=== PATIENT | female | born 1990 | race Caucasian/White ===

== ENCOUNTER → 2018-03-24 08:42 | Outpatient (CLI) | payer MEDICAID, SELFPAY ==
[2018-03-24 15:43] LABS: hCG Titer Quant., Serum < 1 mIU/mL (<9 non-preg)
== END ==
PROVIDERS: Visit Provider Obstetrics & Gynecology
DX: N91.1 Secondary amenorrhea (principal)
CPT/HCPCS: 36415; 84702

== ENCOUNTER → 2018-04-01 14:01 | Outpatient (CLI) | payer MEDICAID, SELFPAY ==
[2018-04-01 15:53] LABS: hCG Titer Quant., Serum < 1 mIU/mL (<9 non-preg)
[2018-04-01 15:57] LABS: Hemoglobin A1c 5.2 % (4.2-6.3)
[2018-04-01 16:00] LABS: Follicle Stimulating Hormone 6.3 mIU/mL; Free T3 2.7 pg/mL (2.18-3.98); Luteinizing Hormone 2.5 mIU/mL; Prolactin 5.2 ng/mL; T4 Free Direct 0.92 ng/dL (0.76-1.46); Thyroid Stim Hormone (TSH) 1.06 uIU/mL (0.358-3.74)
== END ==
PROVIDERS: Visit Provider Obstetrics & Gynecology
DX: N91.2 Amenorrhea, unspecified (principal)
CPT/HCPCS: 36415; 83001; 83002; 83036; 84146; 84439; 84443; 84481; 84702

== ENCOUNTER → 2018-04-08 11:10 | Outpatient (CLI) | payer MEDICAID, SELFPAY ==
[2018-04-12 10:00] LABS: HPV Reflexed? NOT INDICATED
== END ==
PROVIDERS: Visit Provider Obstetrics & Gynecology
DX: Z12.4 Encounter for screening for malignant neoplasm of cervix (principal)
CPT/HCPCS: 88175; G0145

== ENCOUNTER 2018-07-20 12:15 | Emergency (ER) | payer MEDICAID, SELFPAY ==
[2018-07-20 12:16] VITALS: BP 153/81; PULSE 100; RESP 17; TEMP 36.9; O2SAT 98; BMI 39.8
--- NOTE | 2018-07-20 13:06 | ED.VIS.GEN ---
History of Present Illness Chief Complaint: Vag Bleeding Informant: Patient Onset: Weeks - 3 Context: Gradual Onset Timing: Continuous Quality: bleeding w/ clots Location: vaginal Current Severity: Severe Maximum Severity: Severe Worsened by: n/a Relieved by: n/a Associated Symptoms: none Narrative: Patient states she had issues with having her menstrual cycle several months ago, so her doctor put her on progesterone and then she started having cycles again. This time, bleeding started with normal timing of her menstrual cycle, but ever since then, she has been continuing to bleed heavily for the last 3 weeks and has not been able to see her SPOTTER yet and was advised to come to the emergency department. She has no systemic symptoms. She has no significant cramping. She is sexually active and does not think she is . No urinary symptoms. Does not have concerned that she has an STD. She states that a couple of times, she has seen what appeared to be dark colored blood clots that have been slimy but denies any other discharge or vaginal pain/itching. Past Medical History - Allergies and Home Meds Allergies/Adverse Reactions: Allergies No Known Allergies Allergy (Verified 07/20/18 12:16) Primary Care Physician: Care Physician,No Primary [Primary Care Provider] - Smoking Status: Never smoker Review of Systems General: Denies: Chills, Fever, Malaise, Sweats Cardiovascular: Denies: Chest pain, Palpitations Respiratory: Denies: Dyspnea, Cough, Dyspnea on exertion Gastrointestinal: Denies: Abdominal pain, Nausea, Vomiting, Diarrhea, Melena, Hematochezia Genitourinary: Reports: - - vaginal bleeding w/ clots. Denies: Dysuria, Hematuria, Frequency Skin: Denies: Rash Neurological: Denies: Headache, Weakness, Numbness Physical Exam Vital Signs/Narrative: Vital Signs Temp Pulse Resp BP Pulse Ox 07/20/18 12:16 98.4 F 100 17 153/81 H 98 Inital Vital Signs reviewed: Yes General: Well nourished, Well developed, - - well-appearing, nad Head: Normocephalic, Atraumatic Eyes: Perrl, EOMI ENT: Moist mucous membranes, No rhinorrhea Neck: Supple, Nontender Cardiovascular: Regular rate, Regular rhythm, No murmurs, Tachycardia - mild Respiratory: No distress, CTA bilaterally, Chest nontender Abdomen: Soft, Nontender, Nondistended, Normal bowel sounds : ext: no lesions. spec: blood & clots in vault, clot in os, no active bleed Back: Nontender, Normal Inspection. Negative for: CVA tenderness Extremities: Nontender, No edema Skin: Normal color, No rash Neurological: Alert, Oriented x3, Cranial nerves II-XII grossly intact, Normal Strength, Normal Sensation Psychological: Normal affect Diagnostic/Tx/Re-eval Laboratory Results 07/20/18 07/20/18 07/20/18 13:10 13:10 13:20 WBC 8.7 RBC 3.52 L Hgb 10.3 L Hct 31.1 L MCV 88.4 MCH 29.3 MCHC 33.1 RDW 12.3 RDW Differential 37.9 Plt Count 361 MPV 8.9 Immature Gran % (Auto) 0.300 Neut % (Auto) 62.6 Lymph % (Auto) 28.1 [place] % (Auto) 6.0 Eos % (Auto) 2.9 Baso % (Auto) 0.1 Absolute Neuts (auto) 5.5 Absolute Lymphs (auto) 2.45 Total Counted Not Reportable Urine Color Red Urine Clarity Turbid Urine pH 6.5 Ur Specific [place] 1.015 Urine Protein 500 H Urine Glucose (UA) Normal Urine Ketones 15 H Urine Occult Blood 250 H Urine Nitrite Negative Urine Bilirubin Negative Urine Urobilinogen Normal Ur Leukocyte Esterase Negative Urine RBC > 100 SEEN Urine WBC 0-5 SEEN Ur Squamous Epith Cells 0 SEEN Urine Bacteria 0 SEEN Urine Mucus 0 SEEN Urine Test Negative - Medical Decision Making Patient is clinically and hemodynamically stable, labs show mild anemia but nothing that needs to be dealt with emergently. is negative. Discussed with her repossessor Dr. Zhang, he agrees with discharge and close outpatient follow-up within the next week and he will call in a prescription for her to fill today. Patient is comfortable with that plan. ED Disposition - Plan for ED Patient: Disposition: Home or Assisted Living Chief Complaint: Vag Bleeding Diagnosis: Menorrhagia Instructions: ED Bleed Irregular Vaginal Referrals: Alexey Zhang MD [STAFF PHYSICIAN] - 1 Week
--- NOTE | 2018-07-20 13:12 | ED.DCSUM_ITS ---
History of Present Illness Chief Complaint: Vag Bleeding Informant: Patient Onset: Weeks - 3 Context: Gradual Onset Timing: Continuous Quality: bleeding w/ clots Location: vaginal Current Severity: Severe Maximum Severity: Severe Worsened by: n/a Relieved by: n/a Associated Symptoms: none Narrative: Patient states she had issues with having her menstrual cycle several months ago, so her doctor put her on progesterone and then she started having cycles again. This time, bleeding started with normal timing of her menstrual cycle, but ever since then, she has been continuing to bleed heavily for the last 3 weeks and has not been able to see her GENERAL OFFICE ASSOCIATE yet and was advised to come to the emergency department. She has no systemic symptoms. She has no significant cramping. She is sexually active and does not think she is . No urin lexie symptoms. Does not have concerned that she has an STD. She states that a couple of times, she has seen what appeared to be dark colored blood clots that have been slimy but denies any other discharge or vaginal pain/itching. Past Medical History - Allergies and Home Meds Allergies/Adverse Reactions: Allergies No Known Allergies Allergy (Verified 07/20/18 12:16) Primary Care Physician: Care Physician,No Primary [Primary Care Provider] - Smoking Status: Never smoker Review of Systems General: Denies: Chills, Fever, Malaise, Sweats Cardiovascular: Denies: Chest pain, Palpitations Respiratory: Denies: Dyspnea, Cough, Dyspnea on exertion Gastrointestinal: Denies: Abdominal pain, Nausea, Vomiting, Diarrhea, Melena, Hematochezia Genitourinary: Reports: - - vaginal bleeding w/ clots. Denies: Dysuria, Hematuria, Frequency Skin: Denies: Rash Neurological: Denies: Headache, Weakness, Numbness Physical Exam Vital Signs/Narrative: Vital Signs Temp Pulse Resp BP Pulse Ox 07/20/18 12:16 98.4 F 100 17 153/81 H 98 Inital Vital Signs reviewed: Yes General: Well nourished, Well developed, - - well-appearing, nad Head: Normocephalic, Atraumatic Eyes: Perrl, EOMI ENT: Moist mucous membranes, No rhinorrhea Neck: Supple, Nontender Cardiovascular: Regular rate, Regular rhythm, No murmurs, Tachycardia - mild Respiratory: No distress, CTA bilaterally, Chest nontender Abdomen: Soft, Nontender, Nondistended, Normal bowel sounds : ext: no lesions. spec: blood & clots in vault, clot in os, no active bleed Back: Nontender, Normal Inspection. Negative for: CVA tenderness Extremities: Nontender, No edema Skin: Normal color, No rash Neurological: Alert, Oriented x3, Cranial nerves II-XII grossly intact, Normal Strength, Normal Sensation Psychological: Normal affect Diagnostic/Tx/Re-eval Laboratory Results 07/20/18 07/20/18 07/20/18 13:10 13:10 13:20 WBC 8.7 RBC 3.52 L Hgb 10.3 L Hct 31.1 L MCV 88.4 MCH 29.3 MCHC 33.1 RDW 12.3 RDW Differential 37.9 Plt Count 361 MPV 8.9 Immature Gran % (Auto) 0.300 Neut % (Auto) 62.6 Lymph % (Auto) 28.1 [place] % (Auto) 6.0 Eos % (Auto) 2.9 Baso % (Auto) 0.1 Absolute Neuts (auto) 5.5 Absolute Lymphs (auto) 2.45 Total Counted Not Reportable Urine Color Red Urine Clarity Turbid Urine pH 6.5 Ur Specific [place] 1.015 Urine Protein 500 H Urine Glucose (UA) Normal Urine Ketones 15 H Urine Occult Blood 250 H Urine Nitrite Negative Urine Bilirubin Negative Urine Urobilinogen Normal Ur Leukocyte Esterase Negative Urine RBC > 100 SEEN Urine WBC 0-5 SEEN Ur Squamous Epith Cells 0 SEEN Urine Bacteria 0 SEEN Urine Mucus 0 SEEN Urine Test Negative - Medical Decision Making Patient is clinically and hemodynamically stable, labs show mild anemia but nothing that needs to be dealt with emergently. is negative. Discussed with her fine grade operator Dr. Zhang, he agrees with discharge and close outpatient follow-up within the next week and he will call in a prescription for her to fill today. Patient is comfortable with that plan. ED Disposition - Plan for ED Patient: Disposition: Home or Assisted Living Chief Complaint: Vag Bleeding Diagnosis: Menorrhagia Instructions: ED Bleed Irregular Vaginal Referrals: Alexey Zhang MD [STAFF PHYSICIAN] - 1 Week
[2018-07-20 13:15] VITALS: BP 121/86; BP 126/88; BP 128/80; PULSE 74; PULSE 92; PULSE 97
[2018-07-20 13:16] LABS: Bacteria 0 SEEN /hpf (None Seen); Mucous, Urine 0 SEEN /hpf (<or=2+); Squamous Epithelial Cells - UA 0 SEEN /hpf (5-10)
[2018-07-20 13:24] LABS: Color, Urine Red (Yellow); Glucose, Dipstick Normal (Normal); Ketone-Dipstick 15 mg/dl (Negative); Leukocyte Esterase-Dipstick Negative /ul (Negative); Nitrite-Dipstick Negative (Negative); Occult Blood-Urine 250 /ul (Negative); Protein-Dipstick 500 mg/dl (Negative); Specific Gravity, Urine 1.015 (1.002-1.030); Urine Bilirubin Dipstick Negative (Negative); Urine Clarity Turbid (Clear); Urine Urobilinogen Normal (Normal); Urine pH 6.5 (5.0 - 8.0)
[2018-07-20 13:30] LABS: Absolute Lymphocyte Count 2.45 X10^3/ul (0.83-4.51); Absolute Neutrophil Count 5.5 X10^3/uL (2.0-7.7); Basophil# 0.01 X10^3/uL; Basophil% 0.1 % (0-1); Eosinophil# 0.25 X10^3/uL; Eosinophils% 2.9 % (0-5); Hematocrit 31.1 % (37-47); Hemoglobin 10.3 g/dl (12.0-15.0); Lymphocyte # 2.45 X10^3/ul (4.0); Lymphocyte % 28.1 % (19-41); Mean Corp Hgb Conc 33.1 g/gl (32-36); Mean Corpuscular Hgb 29.3 pg (27.0-32.0); Mean Corpuscular Volume 88.4 fL (81-99); Mean Platelet Vol. 8.9 fl (6.2-12.0); Monocyte# 0.52 X10^3/uL; Neutrophil # 5.46 X10^3/uL (2.7-7.7); Neutrophil % 62.6 % (47-70); Platelet Count 361 K/mm3 (150-450); RBC Distribution Width CV 12.3 % (11.6-14.6); RBC Distribution Width SD 37.9 fl (35.1-43.9); Red Blood Count 3.52 M/mm3 (4.2-5.4); White Blood Count 8.7 K/mm3 (4.4-11.0)
[2018-07-20 13:31] LABS: Red Blood Cells-Urine > 100 SEEN /hpf (0-5); White Blood Cells 0-5 SEEN /hpf (0-5)
[2018-07-20 13:32] LABS: Internal QC Validated? YES +Cl - CLEAR BKGD; Pregnancy, Urine Negative Negative
[2018-07-20 13:34] LABS: POSITIVE COUNT NO; POSITIVE DIFFERENTIAL NO; POSITIVE MORPHOLOGY NO
--- NOTE | 2018-07-20 14:46 | ED.RN ---
DISCHARGE INSTRUCTIONS GIVEN TO AND REVIEWED WITH PATIENT, PATIENT DENIES QUESTIONS OR CONCERNS AND VOICE UNDERSTANDING OF DISCHARGE INSTRUCTIONS. PT AMBULATES OUT OF ROOM WITHOUT DIFFICULTY.
--- OUTSIDE RECORDS SUMMARY | 2018-09-14 22:22 | XMS RPT_ITS ---
:1990 Author Organization OHIP Care Team Providers Name Role Phone Alexey Zhang Attending Unavailable Alexey Zhang Attending Unavailable Primay Care Physicia, No Primary Care Unavailable Alexey Zhang Attending Unavailable Primay Care Physicia, No Primary Care Unavailable Primay Care Physicia, No Primary Care Unavailable KORY HO Attending Unavailable Dee Pederson Admitting Unavailable Dee Pederson Attending Unavailable Primay Care Physicia, No Primary Care Unavailable SANDEEP FERNANDEZ Attending Unavailable PROBLEMS PROBLEMS DATE TYPE CONDITION / CODE ATTENDING STATUS SOURCE 07/25/2018 Unknown N92.0 - Excessive Dacia, Dee Active [facility] and frequent Community menstruation with Hospital regular cycle / Repository N92.0(ICD-10) 07/25/2018 Unknown N92.1 - Excessive Benekos, Dee Active [place] and frequent Community menstruation with Hospital irregular cycle / Repository N92.1(ICD-10) 07/25/2018 Unknown Z68.41 - Body mass Dacia, Dee Active [facility] index (BMI) Community 40.0-44.9, adult / Hospital Z68.41(ICD-10) Repository 07/22/2018 Active Excessive and SANDEEP FERNANDEZ Active [facility] frequent [facility] Other [place] menstruation with Repository irregular cycle / N92.1(ICD-10) 07/22/2018 Active Anemia, ROBBIN FERNANDEZK Active [facility] unspecified / VANDANA Other [place] D64.9(ICD-10) Repository 08/01/2018 Unknown N93.9 - Abnormal VICKORY SALEH Active [facility] uterine and Community vaginal bleeding, Hospital unspecified / Repository N93.9(ICD-10) 04/08/2018 Unknown Z12.4 - Encounter Alexey Zhang Active [facility] for screening for Community malignant neoplasm [facility] / Repository Z12.4(ICD-10) 04/01/2018 Unknown N91.2 - SealAlexey dykes Active [facility] Amenorrhea, Community unspecified / Hospital N91.2(ICD-10) Repository 03/25/2018 Unknown N91.1 - Secondary SealAlexey dykes Active [facility] amenorrhea / Community N91.1(ICD-10) Hospital Repository PROCEDURES PROCEDURES No Procedure Records FoundRESULTS RESULTS DISCHARGE INSTRUCTION Observed: 07/23/2018 Status: F Source: [place] 1:42 PM [facility] REPOSITORY [facility] Medical Records Department [address] [place] [address] Instructions for Home/Discharge Instructions 07/23/18 1338 MR#: [id number] Acct: [id number] Name: RENUKA LAKE Rep #: [id number] : 1990 28 From: Dee Pederson MD PCP: Care Physician, No Primary Status: ADM JV You will use the following diet at home:: No restrictions Discharge Activity: May Shower, May Take a Tub Bath May resume sexual activity in: 1 week Call your doctor if you observe: Fever of 101 or Higher, Using more than one pad per hour, Shortness of breath Allergies/Adverse Reactions: Allergies No Known Allergies Allergy (Verified 07/22/18 20:27) Medications to take at Discharge Acetaminophen [Tylenol] 500 - 1,000 mg PO Q6H PRN PRN tablet 07/23/18 Ferrous Gluconate 324 mg PO BIDCM tablet 07/23/18 Naproxen [Naprosyn] 250 - 500 mg PO Q8H PRN PRN tablet 07/23/18 Primary Care Physician: Care Physician,No Primary [Primary Care Provider] - Test Results: Test results from this visit will be discussed in further detail at your follow-up appointment, if applicable. Please Follow Up With: Alexey Zhang MD - [phone] When: as scheduled on 07/26/18 Proposed Discharge Date: 07/23/18 07/23/18 1342 <Electronically signed by Dee Pederson MD> Date Dee Pederson MD CC: No Primary Care Physician DISCHARGE SUMMARY Observed: 07/23/2018 Status: F Source: [place] 9:42 AM [facility] REPOSITORY [facility] Medical Records Department [address] [place] [address] [place] [address] Discharge Summary 07/23/18 0936 MR#: [id number] Acct: [id number] Name: RENUKA LAKE Rep #: [id number] : 1990 28 From: Dee Pederson MD PCP: Care Physician, No Primary Status: ADM JV Y Location: [address] Discharge Date and Diagnosis Date of Admission: 07/22/18 Date of Discharge: 07/23/18 - Primary Discharge Diagnosis Menorrhagia Irregular and excessive vaginal bleeding Acute blood loss anemia Hospital Course and Treatment Imaging Results: 07/23/18 08:00 Transvaginal Non- [US] Urgent Operations: - Summary of Care Provided: The patient is a 28 year old F Presents from [place] ED with CC of heavy vaginal bleeding Bleeding since 07/04/18 and now CD 9. Had been given Provera in past to regulate cycles, amenorrhea. Most recently given Sprintec two po daily and ferrous gluconate 324 mg po bid to control and treat bleeding. nausea on this regimen and continued bleeding. Hgb at [facility] 10 g/dl then to [place] tow days later Hgb at 8 g/dl. Advised hospital observation with serial hgb and exams , possible blood transfusion. DepoProvera 150 mg IM x one given on 07/22/18. Last pm Hgb here 7.7 g/dl and this am Hgb 7.1 g/dl. Pt is clinically stable, no longer bleeding heavily or passing clots. Pelvic sono done, results pending. Dischg home today To f/u with Dr. Zhang as scheduled on 07/26/18 in office for continued plan of care. - Physical Exam Vital Signs Temp Pulse Resp BP Pulse Ox 98.4 F 86 16 103/59 L 99 07/23/18 08:36 07/23/18 08:36 07/23/18 08:36 07/23/18 08:36 07/23/18 08:36 Oxygen Delivery Method Room Air Weight: 109.854 kg Body Mass Index (BMI) 40.3 Intake and Output for Last 24 Hours Intake Total 120 / 120 250 / 250 Output Total 200 / 200 100 / 100 Balance -80 / -80 150 / 150 Laboratory Tests Past 24 Hrs WBC 13.9 H 8.3 RBC 2.71 L 2.48 L Hgb 7.7 L 7.1 L Hct 23.6 L 21.8 L MCV 87.1 87.9 MCH 28.4 28.6 MCHC 32.6 32.6 WBC Discharge Diet: No Restrictions Discharge Activity: May Shower, May Take a Tub Bath Call your doctor if you observe: Fever of 101 or Higher, Using more than one pad per hour, Shortness of breath Home Medications: Medications to take at Discharge NK 07/20/18 Primary Care Physician: Care Physician,No Primary [Primary Care Provider] - Please Follow Up With: Alexey Zhang MD - [phone] When: as scheduled on 07/26/18 Disposition: Home Patient Condition:: Stable Medical Necessity - Tobacco Use Smoking Status: Never smoker Tobacco Use: Non-smoker Meaningful Use Info Meaningful Use Diagnoses (Choose all that apply): None applicable 07/23/18 0942 <Electronically signed by Dee Pederson MD> Date Dee Pederson MD Cosigner Signature (if applicable): Date CC: No Primary Care Physician; Dee Pederson MD Signed CBC-COMPLETE BLOOD CNT Collected: 07/23/2018 Status: F Source: [place] NO DIFF 7:03 AM [facility] REPOSITORY TYPE CODE TESTS RESULT OUT OF RANGE REFERENCE UNITS LAB L100.1000 4.4-11.0 K/mm3 Normal WBC 8.3 LAB L100.1200 4.2-5.4 M/mm3 Low RBC 2.48 LAB L100.1300 12.0-15.0 g/dl Low HGB 7.1 LAB L100.1400 37-47 % Low HCT 21.8 LAB L100.1500 81-99 fL Normal MCV 87.9 LAB L100.1600 27.0-32.0 pg Normal MCH 28.6 LAB L100.1700 32-36 g/gl Normal MCHC 32.6 LAB L100.1810 11.6-14.6 % Normal RDW CV 12.9 LAB L100.1820 35.1-43.9 fl Normal RDW SD 41.1 LAB L100.1900 150-450 K/mm3 Normal PLT 287 LAB L100.2000 6.2-12.0 fl Normal MPV 8.8 Performed By: #### L100.0500, L500.2500 #### [facility] [address] [place], [place], [address] BASIC METABOLIC Collected: 07/23/2018 Status: F Source: [place] PROFILE (BMP) 7:03 AM [facility] REPOSITORY TYPE CODE TESTS RESULT OUT OF RANGE REFERENCE UNITS LAB L501.0100 74-106 mg/dL High GLU 107 Result Comment: Fasting Glucose result from 100 to 125 mg/dL suggests IMPAIRED HOMEOSTASIS per A.D.A. criteria. Please note revised GLUCOSE reference range effective 2017. LAB L501.1000 7-18 mg/dL Normal BUN 11 LAB L501.1100 0.55-1.02 mg/dL Normal CREAT,SERUM 0.68 Result Comment: The validity of the calculated GFR AND GFRAA in patients over 70 years has not been determined. Clinical correlation is essential. LAB L501.1110 >60 mL/min Normal EST GFR 109 Result Comment: Non- GFR Calc LAB L501.1115 >60 mL/min Normal EST GFR - AA 131 Result Comment: GFR Calc LAB L501.1255 ml/min Normal Estimated CRCL 109.84 LAB L501.1300 10-20 RATIO BUN/CRE Normal 16.2 LAB L501.2200 8.5-10 mg/dL Low .1 CA 8.1 LAB L501.5300 136-14 mmol/L 5 NA Normal 142 LAB L501.5600 3.5-5. mmol/L Low 1 K 3.4 LAB L501.5900 98-107 mmol/L CL Normal 107 LAB L501.6100 21.0-3 mmol/L 2.0 CO2 Normal 28.0 LAB L501.6200 5-15 GAP Normal 7 Performed By: #### L100.0500, L500.2500 #### [facility] [address] [facility] [place], [address] TRANSVAGINAL Observed: 07/23/2018 Status: F Source: [place] NON- 12:01 AM [facility] REPOSITORY [facility] Imaging Services [address] [place] [address] Transvaginal Non- MR#: [id number] Acct: [id number] Name: RENUKA LAKE Rep #: [id number] : 1990 F 28 From: Tonny Canas MD PCP: Care Physician, No Primary Status: ADM JV Study: Transvaginal Non- Date of Exam: 07/23/18 Exam# [id number] Ordering Dr: Dee Pederson MD STUDY: ULTRASOUND OF THE FEMALE PELVIS - COMPLETE REASON FOR EXAM: Female, 28 years old. Menorrhagia. History of section. LMP: July 04, 2018. TECHNIQUE: Transvaginal primarily. A few additional transabdominal images were obtained for additional imaging of the left ovary. TECHNICAL QUALITY: Adequate. COMPARISON: None. FINDINGS: The uterus is anteverted and is in a midline position. The uterus measures 9.1 x 6.8 x 5.2 cm. There are subcentimeter Nabothian cysts of the cervix. The endometrium measures 23 mm in thickness, and is hyperechoic. There is no demonstrated endometrial mass. There is no demonstrated myometrial mass. I.U.D. - The patient does not have an I.U.D. The right ovary is visualized only with endovaginal imaging. The right ovary measures 6.0 x 5.6 x 3.7 cm. This includes a 4.6 x 3.8 x 3.2 cm simple appearing cyst. There is no visualized right adnexal mass or complex lesion. There is normal arterial and normal venous vascularity. The left ovary is visualized only on transabdominal imaging. The left ovary measures 3.5 x 2.3 x 2.0 cm. There is a simple appearing 1.8 x 1.6 x 1.2 cm cyst. There is no visualized left adnexal mass or complex lesion. There is normal arterial and normal venous vascularity. There is minimal fluid in the cul-de-sac. Polycystic ovary disease: No. US/Transvaginal Non- IMPRESSION: 1. Normal size, anteverted uterus with probable hyperplastic endometrial thickening. Blood clot in the endometrial cavity might also have this appearance. Neoplasm unlikely, but not excluded. 2. 4.6 cm simple appearing right ovarian cyst, and 1.8 cm probable follicular cyst in the left ovary. 3. Small volume free fluid in the cul-de-sac. Electronically Signed: Loy Canas MD at 10:43 EST , Service support , CC: No Primary Care Physician; Dee Pederson MD Autocad: Signed TYPE AND SCREEN Collected: 07/22/2018 Status: F Source: [place] 9:45 PM [facility] REPOSITORY Order Comment: Reason for Type AND Screen/Red Cells: HEMORRHAGE, VAGINAL TYPE CODE TESTS RESULT OUT OF RANGE REFERENCE UNITS LAB B10.0800 O Normal BLOOD TYPE GEL POSITIVE LAB B100.4000 Normal Antibody NEGATIVE Screen Performed By: #### B101.7450 #### [facility] [address] [facility] [place], [address] HISTORY AND PHYSICAL Observed: 07/22/2018 Status: F Source: [place] EXAM 8:58 PM [facility] REPOSITORY [facility] Medical Records Department [address] [place] [address] History and Physical 07/22/182001 MR#: [id number] Acct: [id number] Name: RENUKA LAKE Rep #: [id number] : 1990 28 From: Dee Pederson MD PCP: Care Physician, No Primary Status: ADM JV Y Location: [place] [address] History and Physical Date of Admission: 07/22/18 HISTORY OF PRESENT ILLNESS: On 07/22/2018, Renuka Sagastume, a 28 year old female 2 0 0 0 2, presented for: -- Admitting to [facility] from [place] ED. Pt with heavy bleeding, starting in last week. She has been on Provera in past due to amenorrhea. Had normal prolactin, TSH, Free T3. Hgb A1C , FSH and LH all in March 2018. Has not had a pelvic sono done at [facility] or in ofc (outside of ). Went to [place] ED today for evaluation after calling in to ofc to state she feels like and is SOB and bleeding heavily. [facility] does not have PRODUCTION SUPPORT DEVELOPER service, no DepoProvera available. No pelvic sono can be done. Recommended she come to [facility] for direct admit, overnight observation, serial CBC, possible blood transfusion and pelvic sono. Plan of care discussed with [place] ED on service johnie and Renuka agreed. EB -- vaginal bleeding which began 06/03/18. Renuka claims it started with period and has been present continuously. It is located in the vagina. It is aggravated by nothing and relieved by Nothing . OCP is not working for her as bleeding continues. An associated sign and symptom is h/o amenorrhea, irreg periods. Induced period with Provera in past.. Additional comment: Hgb 10 at [facility] ED w d ago. , now 8 gm/dl at [place] ED tonight. States she is feeling a little better than when she went to ED at [place]. Relates when she called in she was at home alone with 3 yr old also and feeling very overwhelmed with bleeding. No longer SOB. States period was irregular in past, but has been about q month since January 2018. ALLERGIES: No Known Allergies MEDICATIONS HISTORY: Current medications prescribed by our practice are: 1. ferrous gluconate 324 mg (37.5 mg iron) tablet, one tab PO twice daily 2. Sprintec (28) 0.25 mg-35 mcg tablet, two tabs po daily for 10 days 3. Zofran 4 mg tablet, one tab PO every 6 hours as needed for nausea REVIEW OF SYSTEMS: GENERAL - Denies fever, or chills, feels awful and dizzy. SKIN - Denies skin changes EYES - Denies visual changes EARS - Denies difficulty hearing NOSE - Denies nasal congestion or bleeding MOUTH - Denies sore throat or difficulty swallowing NECK - Denies pain or swelling RESPIRATORY - short of breath CARDIOVASCULAR - Denies palpitations or chest pain GASTROINTESTINAL - Denies nausea, vomiting, diarrhea, constipation GENITOURINARY - heavy bleeding. OCP not working. MUSCULOSKELETAL - Denies joint or muscle pain NEUROLOGICAL - Denies localized numbness or weakness PSYCHIATRIC - Denies depression or anxiety ENDOCRINE - Denies heat or cold intolerance, weight loss or gain HEMATO-IMMUNOLOGIC - Denies excessive bleeding with cuts PAST HISTORY: Breast/Ovarian/Colon Cancers - Great Grandmother breastfeed cancer Infections - Chicken pox Illnesses - none Accidents - no injuries of consequence History of Abnormal PAPS - NO Hospitalizations - Childbirth and see surgery SURGICAL HISTORY: 1. 01/18/2015 Dr Alexey Zhang 2. 02/13/2011 [place] LOMELI MENSTRUAL HISTORY: LMP Known?- DefiniteAmount/Duration - excess amount CD 20 now, Regularity - Irregular and missed periods, LMP - 07/02/18, Age Onset Menarche - 13 PAST PREGNANCIES: Total Pregnancies - 2; Full Term Pregnancies - 2; Premature - 0; Abortions, Induced - 0; Abortions, Spontaneous - 0; Ectopics - 0; Multiple Births - 0; Living Children - 2 FAMILY HISTORY (OLD): Maternal Grandmother: pancreatic CA. Maternal Grandfather: Liver cancer. FAMILY HISTORY: MaternalGrandparent - Cancer; MaternalGrandparent - Carcinoma of the pancreas; SOCIAL HISTORY: Alcohol Use - denies drinking Smoking - Never Diet - could use improvement Lifestyle - moderate stress lifestyle and single Exercise - minimal Seat Belt Use - always Employer - [employer] Job Description - dental assistant prosecuting attorney Illicit Drug Use - denies use of street drugs Sexual Activity - ACTIVE ONE PARTNER Residence - Lives with SO/FOB Place of - [place], [place] Hours Worked - 30 hr per week Spouse-Sig Other Name - Susana Lake Spouse-Sig Other Occupation - Hvac R Instructor Spouse-Sig Other Phone No - [phone] Children Name(s) - Hakeem '11, Kristen '15 PHYSICAL EXAMINATION BP: 110/57 Pulse 92 Pulse ox: 99% on 18 CONSTITUTIONAL - NAD, well nourished, and well developed. Slightly pale appearing. [place] with fair complexion. HEENT - Normocephalic, PERRLA, EOMI NECK - no nuchal rigidity EXTREMITIES - No edema or calf tenderness NEUROLOGICAL - Cranial nerves II-XII grossly intact PSYCHIATRIC - A and O to time, place, person, mood and affect ASSESSMENT: 1. Excessive Bleeding In The Premenopausal Period 2. Other Specified Irregular Menstruation PLAN BY DIAGNOSIS: 1. Excessive Bleeding In The Premenopausal Period and Other Specified Irregular Menstruation H/o amenorrhea and induced period with Provera. Now with heavy bleeding in last 7 days. Period started 07/04/18 and bleeding still, CD #9 Hgb 10 in [facility] ED on 07/20/18, dec to 8 g/dl at [facility] ED. No PRODUCTION SUPPORT DEVELOPER service, no sono at [facility]. Recommend pt come to [facility] for overnight observation. Reviewed options for management with Renuka. Not tolerating Sprintec and / or iron. Advised may consider inc dose of OCP (but not likely to tolerate), IV estrogen to slow bleeding, or DepoProvera 150 mg IM x one. Elects DepoProvera 150 mg IM for now. Plan for serial CBC and will type and screen tonight also in case transfusion required. Clinically stable at present, but with continued bleeding. Continue observation. 07/22/182057 <Electronically signed by Dee Pederson MD> Date Dee Pederson MD Cosigner Signature: Date (if applicable) CC: No Primary Care Physician; Dee Pederson MD Signed ED NOTE Observed: 07/22/2018 Status: COMPLETED Source: [place] 7:02 PM [facility] REPOSITORY HNO ID: [id number] Author: Leonela Redman RN Service: Emergency Medicine Author Type: Registered Nurse Type: ED Notes Filed: 07/22/2018 7:02 PM Note Text: Patient informed: the name of medication, why we are giving it, possible side effects, what they may expect to feel, and was offered a chance to ask questions, prior to the administration of Zofran ED NOTE Observed: 07/22/2018 Status: COMPLETED Source: [place] 6:58 PM [facility] REPOSITORY HNO ID: [id number] Author: Leonela Redman RN Service: Emergency Medicine Author Type: Registered Nurse Type: ED Notes Filed: 07/22/2018 7:15 PM Note Text: Patient c/o nausea requesting medication before transfer. Verbal order from for Zofran. ED NOTE Observed: 07/22/2018 Status: COMPLETED Source: [place] 6:11 PM [facility] REPOSITORY [place] ID: [id number] Author: Tanner Perez, RN Service: Emergency Medicine Author Type: Registered Nurse Type: ED Notes Filed: 07/22/2018 6:16 PM Note Text: Contacted [facility] for transport. Spoke with Savita, she was given requested patient information. She states [facility] will take the transport. ETA 1 hour. ED NOTE Observed: 07/22/2018 Status: COMPLETED Source: [place] 6:09 PM [facility] REPOSITORY HNO ID: [id number] Author: Tanner YoungRn) BK Perez Service: Emergency Medicine Author Type: Registered Nurse Type: ED Notes Filed: 07/22/2018 6:15 PM Note Text: Received call from sae Buckmalt house kiln operator at [facility]. Pt has been assigned to room # 215, med/surg. Number for report is . Primary nurse notified. ED NOTE Observed: 07/22/2018 Status: COMPLETED Source: [place] 6:01 PM [facility] REPOSITORY HNO ID: [id number] Author: Tanner YoungRn) BK Perez Service: Emergency Medicine Author Type: Registered Nurse Type: ED Notes Filed: 07/22/2018 6:02 PM Note Text: Spoke with Heber Dust Collector Operator at [place]. Notified that pt will be admitted by Dr. Pederson. He states he will assign bed after receiving a call from admitting physician. ED NOTE Observed: 07/22/2018 Status: COMPLETED Source: [place] 5:58 PM [facility] REPOSITORY HNO ID: [id number] Author: Tanner YoungRn) BK Perez Service: Emergency Medicine Author Type: Registered Nurse Type: ED Notes Filed: 07/22/2018 5:59 PM Note Text: Pt is willing to be admitted to [place]. ED NOTE Observed: 07/22/2018 Status: COMPLETED Source: [place] 5:54 PM [facility] REPOSITORY HNO ID: [id number] Author: Tanner Perez RN Service: Emergency Medicine Author Type: Registered Nurse Type: ED Notes Filed: 07/22/2018 5:58 PM Note Text: Dr. Pederson ([facility]) called back to unit, covering for Dr. Zhang. Dr. Pederson recommends admission to [facility]. She will arrange direct admit. Dr. Fernandez will speak with patient regarding admission ED NOTE Observed: 07/22/2018 Status: COMPLETED Source: [place] 5:43 PM [facility] REPOSITORY HNO ID: [id number] Author: Tanner Perez RN Service: Emergency Medicine Author Type: Registered Nurse Type: ED Notes Filed: 07/22/2018 5:44 PM Note Text: Contacted answering service for GEM Cordero in [place]. Deputy Commonwealth'S Attorney given requested information. States we should receive a call- back shortly ED NOTE Observed: 07/22/2018 Status: COMPLETED Source: [place] 4:45 PM [facility] REPOSITORY HNO ID: [id number] Author: Tanner (Rn) BK Perez Service: Emergency Medicine Author Type: Registered Nurse Type: ED Notes Filed: 07/22/2018 4:46 PM Note Text: Heber malt house kiln operator at [facility] called back and stated he could find no records of this patient at [place]. Primary nurse and physician notified. BASIC PANEL Collected: 07/22/2018 Status: F Source: [facility] 4:34 PM HEALTH SYSTEM REPOSITORY TYPE CODE TESTS RESULT OUT OF REFERENCE UNITS RANGE LAB BERRY PICKER(LOINC) 136-145 mEq/L Low Sodium Blood 135 LAB LK(LOINC) 3.5-5.1 mEq/L Potassium Blood 4.0 LAB LCL(LOINC) 98-107 mEq/L Chloride Blood 101 LAB LCO2(LOINC 21-32 mEq/L ) CO2 Blood 29 LAB LGLU(LOINC 70-99 mg/dL ) Glucose High Blood 120 LAB LBUN(LOINC 7-25 mg/dL ) BUN Blood 15 LAB LCREA(LOIN 0.51-0.95 mg/dL C) Creatinine Blood 0.70 LAB LCA(LOINC) 8.5-10.1 mg/dL Calcium Blood 8.7 LAB LANGP(LOIN 8-20 C) Anion Gap 10 LAB LBNCR(LOIN 10-20 C) High BUN/Creatinine 21 Ratio Performed By: #### LP8 #### [place] [address] MDRD EGFR Collected: 07/22/2018 Status: F Source: [facility] 4:34 PM HEALTH SYSTEM REPOSITORY TYPE CODE TESTS RESULT OUT OF RANGE REFERENCE UNITS LAB LGFRF(LOINC >60mL/min/1.73m ) 2 eGFR >60 Result Comment: If the patient is , multiply the result by 1.210. Performed By: #### LGFR #### [address] [address] HEMOGRAM/MANUAL DIFF Collected: 07/22/2018 Status: F Source: [place] 4:34 PM [facility] REPOSITORY TYPE CODE TESTS RESULT OUT OF REFERENCE UNITS RANGE LAB LWBC(LOINC 4.8-10.8 thou/cmm ) WBC High 12.7 LAB LRBC(LOINC 4.20-5.40 mil/cmm ) RBC Low 2.80 LAB LHGB(LOINC 12.0-16.0 g/dL ) Hgb Low 8.1 LAB LHCT(LOINC 37.0-47.0 % ) Hct Low 24.9 LAB LMCV(LOINC 81.0-99.0 fl ) MCV 88.9 LAB LMCH(LOINC 27.0-31.0 pg ) MCH 28.9 LAB LMCHC(LOIN 32.0-36.0 % C) MCHC 32.5 LAB LRDW(LOINC 11.5-15.9 % ) RDW 12.2 LAB LPLT(LOINC 150-400 thou/cmm ) Platelet 364 LAB LMPV(LOINC 7.1-10.5 fl ) MPV 8.8 LAB LDTYP(LOIN C) Diff Type Manual Diff LAB LSEGT(LOIN % C) Seg Neutrophil 91.0 LAB LLYMP(LOIN % C) Lymphocyte 7.0 LAB LMNO(LOINC % ) Monocyte 2.0 LAB JENNIFER(LOINC % ) Eosinophil 0.0 LAB LBASO(LOIN % C) Basophil 0.2 LAB LSEGN(LOIN 3.00-5.67 thou/cmm C) Abs. Neut (ANC) High 11.53 LAB LLYMN(LOIN 1.50-3.65 thou/cmm C) Abs. Lymph Low 0.89 LAB LMONN(LOIN 0.20-1.00 thou/cmm C) Abs. Hodgeman 0.25 LAB LEOSN(LOIN 0.00-0.41 thou/cmm C) Abs. Eosin 0.00 LAB LBASN(LOIN 0.00-0.08 thou/cmm C) Abs. Baso 0.03 LAB LPLES(LOIN C) Platelet Estimate Normal LAB LANIS(LOIN C) Anisocytosis Slight LAB LPOLY(LOIN C) Polychromasia Few LAB LSTOM(LOIN C) Stomatocytosis Slight Performed By: #### LMCBD #### [facility] [address] [place], [place] [address] ED NOTE Observed: 07/22/2018 Status: COMPLETED Source: [place] 4:30 PM [facility] REPOSITORY HNO ID: [id number] Author: Leonela (Rn) Юлия RN Service: Emergency Medicine Author Type: Registered Nurse Type: ED Notes Filed: 07/22/2018 4:31 PM Note Text: [facility] and lab results from patients last visit. Record released signed by patient and faxed to [facility]. URINE HCG, QUAL. Collected: 07/22/2018 Status: F Source: [facility] 4:30 PM HEALTH SYSTEM REPOSITORY TYPE CODE TESTS RESULT OUT OF REFERENCE UNITS RANGE LAB LUHCG(LOINC Negative ) HCG, Negative Qual. Urine Performed By: #### LHCG2 #### [facility] [address] [id number] URINALYSIS ROUTINE Collected: 07/22/2018 Status: F Source: [facility] 4:30 PM HEALTH SYSTEM REPOSITORY TYPE CODE TESTS RESULT OUT OF RANGE REFERENCE UNITS LAB LCOLR(LOIN C) Urine Color YELLOW LAB LAPPU(LOIN C) Urine Appearance 2+ (SLT CLOUDY) LAB LGLUR(LOIN Negative C) Glucose Urine NEGATIVE LAB LKETO(LOIN Negative C) Abnormal Ketone Urine 1+ LAB LHGBU(LOIN Negative C) Abnormal Hemoglobin,Urin 2+ e LAB LPRTU(LOIN Negative C) Protein Urine NEGATIVE LAB LNITR(LOIN Negative C) Nitrites Urine NEGATIVE LAB LBILU(LOIN Negative C) Bilirubin Urine NEGATIVE LAB LSPG(LOINC 1.005-1.030 ) Specific 1.015 [place], Ur LAB LPHUR(LOIN 5.0-8.0 C) High pH,Urine 8.5 LAB LUROB(LOIN 0.0-1.0 EU/dL C) High Urobilinogen,Ur 2.0 LAB LLEUK(LOIN Negative C) Abnormal Leukocytes TRACE Esterase LAB LWBCU(LOIN 0-5 /hpf C) WBC, Urine 0-2 LAB LRBCU(LOIN 0-3 /hpf C) Abnormal RBC,Urine 21-35 LAB LEPIT(LOIN 0-5 /hpf C) Ep Cells Urine 0-2 LAB LBACT(LOIN None C) Abnormal Bacteria Urine FEW LAB LMUCU(LOIN None C) Mucus Threads MODERATE Performed By: #### AMAN #### [facility] [address] [id number] ED PROV NOTE Observed: 07/22/2018 Status: COMPLETED Source: [place] 4:21 PM [facility] REPOSITORY HNO ID: [id number] Author: Sandeep Fernandez MD Service: Emergency Medicine Author Type: Physician Type: ED Provider Notes Filed: 07/22/2018 5:59 PM Note Text: ED Provider Note Patient Name: Renuka Sagastume SERVICE DATE: 07/22/18 History Patient presents with: Vaginal Bleeding 28-year-old female, complains of vaginal bleeding ?4 weeks. Seen in the ED just several days ago at [facility]. Found to have low hemoglobin, started on iron. Also started on control pills for which she is taking double dose per her BELL VALET recommendations. She has not been able to see her BELL VALET since this bleeding began. Complains of mild lightheadedness, dizziness, nausea times. Cannot describe how heavy the bleeding is, but states she soaking through pads fairly frequently, and having use towels at night to prevent excessive leakage of blood. Denies history of prior abnormal vaginal bleeding prior to this episode. Last menstrual period was in mid May. She is Ab1. Denies chance of with negative test just several days ago. No chest pain. No shortness of breath. No cough, sputum, hemoptysis. No easy bruising or bleeding otherwise. On no anticoagulants. No past medical history on file. No past surgical history on file. No family history on file. Social History Social History Main Topics - Smoking status: Never Smoker - Smokeless tobacco: Never Used - Alcohol use No - Drug use: No - Sexual activity: Yes ALLERGIES No Known Allergies Review of Systems Constitutional: Negative. Negative for diaphoresis and fever. HENT: Negative. Negative for dental problem, ear pain, rhinorrhea and sore throat. Eyes: Negative. Negative for pain and discharge. Respiratory: Negative. Negative for cough, chest tightness and shortness of breath. Cardiovascular: Negative. Negative for chest pain, palpitations and leg swelling. Gastrointestinal: Negative. Negative for abdominal pain, diarrhea, nausea and vomiting. Endocrine: Negative for polyphagia and polyuria. Genitourinary: Positive for menstrual problem, pelvic pain and vaginal bleeding. Negative for difficulty urinating, dysuria, frequency and urgency. Minimal cramping, but heavy vaginal bleeding. Musculoskeletal: Negative. Negative for back pain, gait problem and neck pain. Skin: Negative. Negative for rash and wound. Allergic/Immunologic: Negative for immunocompromised state. Neurological: Negative. Negative for dizziness, seizures, weakness and headaches. Hematological: Does not bruise/bleed easily. Psychiatric/Behavioral: Negative. Negative for agitation and confusion. All other systems reviewed and are negative. Physical Exam BP 129/67 Pulse 98 Temp (Src) 97.1 (Temporal Artery) Resp 18 Ht 5' 5 (1.65m) Wt 230 lb (104.3kg) SpO2 100% BMI 38.27 kg/(m2). Physical Exam Constitutional: She is oriented to person, place, and time. She appears well-developed and well-nourished. No distress. HENT: Head: Normocephalic and atraumatic. Mouth/Throat: No oropharyngeal exudate. Eyes: Pupils are equal, round, and reactive to light. EOM are normal. Right eye exhibits no discharge. Left eye exhibits no discharge. Neck: Normal range of motion. Neck supple. No tracheal deviation present. Cardiovascular: Normal rate, regular rhythm, normal heart sounds and intact distal pulses. No murmur heard. Pulmonary/Chest: No stridor. No respiratory distress. She has no wheezes. She has no rales. Abdominal: Soft. Bowel sounds are normal. She exhibits no distension and no mass. There is no tenderness. There is no rebound and no guarding. Musculoskeletal: Normal range of motion. She exhibits no edema or deformity. Neurological: She is alert and oriented to person, place, and time. She exhibits normal muscle tone. Coordination normal. CN II-VII intact, swallowing intact Skin: Skin is warm and dry. No rash noted. Psychiatric: She has a normal mood and affect. Judgment normal. Nursing note and vitals reviewed. Diagnostic Testing ED Labs Ordered and Reviewed BASIC METABOLIC PANEL (AK,AV,EU,FV,HL,GABINO,MM,SP) - Abnormal; Notable for the following: Result Value Ref Range Sodium 135 (*) 136 - 145 mEq/L Glucose 120 (*) 70 - 99 mg/dL BUN/CREATININE RATIO 21 (*) 10 - 20 All other components within normal limits CBC + AUTO DIFF (AK,AV,EU,FV,HL,GABINO,MM,SP) - Abnormal; Notable for the following: WBC 12.7 (*) 4.8 - 10.8 thou/cmm RBC 2.80 (*) 4.20 - 5.40 mil/cmm HGB 8.1 (*) 12.0 - 16.0 g/dL Hematocrit 24.9 (*) 37.0 - 47.0 % Abs. Neut(Anc) 11.53 (*) 3.00 - 5.67 thou/cmm Abs. Lymph 0.89 (*) 1.50 - 3.65 thou/cmm All other components within normal limits URINALYSIS WITH MICROSCOPIC (EU,FV,HL,GABINO,MM,SP) - Abnormal; Notable for the following: Ketones, Urine 1+ (*) Negative Hemoglobin, Urine 2+ (*) Negative pH, Urine 8.5 (*) 5.0 - 8.0 Urobilinogen, Urine 2.0 (*) 0.0 - 1.0 EU/dL Leukocytes Esterase TRACE (*) Negative RBC, Urine 21-35 (*) 0 - 3 /hpf Bacteria Urine (Manual) FEW (*) None All other components within normal limits HCG QUALITATIVE URINE (AK,AV,EU,FV,HL,GABINO,MM,SP) MDRD GFR Procedures ED Course / Clinical Impression Clinical Impressions as of Jul 22 1759 Menometrorrhagia Anemia, unspecified type MDM / Disposition / Plan Patient presents with continued heavy vaginal bleeding. Started OCP several days ago due to the same thing. Sprintec medication, 2 pills a day per her BELL VALET. Pelvic exam done with salicylic acid blender showed continued mild to moderate vaginal bleeding of dark blood. One or 2 small clots in the vaginal vault. Uterus not tender or overly enlarged. No adnexal masses appreciated. test negative. Hemoglobin 8.1 which is down to just over 2 g from 07/20/2018 when it was 10.3. Chemistries unremarkable. Case will be discussed with Dr. Quach or on-call physician to discuss further options at this point. Case d/w Dr Pederson: Patient will be transferred to [facility] for admission per the discussion. Repeat hemoglobins, possible ultrasounding, and discussion of management of the Metro nausea. Patient in concurrence with plan and has no questions or concerns. The patient was TRANSFERRED to: [facility] Condition at time of disposition: stable SIGNATURE: MD Sandeep Light MD 07/22/18 1759 ED NOTE Observed: 07/22/2018 Status: COMPLETED Source: [place] 4:04 PM [facility] [place] REPOSITORY HNO ID: [id number] Author: Leonela (Rn) BK Redman Service: Emergency Medicine Author Type: Registered Nurse Type: ED Notes Filed: 07/22/2018 4:06 PM Note Text: Patient states she has been having vaginal bleeding and cramping x4 weeks - has seen her OBGYN for this problem. Patient states last 12 hours bleeding has been worse - OBGYN told patient to come to ED. Patient states hemoglobin checked on wednesday and was low. Patient alert and oriented ambulates to room 7 without difficulty. Patient c/o of feeling weak today. EMERGENCY DEPARTMENT Observed: 07/20/2018 Status: F Source: [place] SUMMARY 2:22 PM [facility] REPOSITORY [facility] Medical Records Department [address] [place] [address] Emergency Department Summary 07/20/18 1306 MR#: [id number] Acct: [id number] Name: RENUKA LAKE Rep #: [id number] : 1990 28 From: Koyr Ho MD PCP: Care Physician, No Primary Status: REG ER History of Present Illness Chief Complaint: Vag Bleeding Informant: Patient Onset: Weeks - 3 Context: Gradual Onset Timing: Continuous Quality: bleeding w/ clots Location: vaginal Current Severity: Severe Maximum Severity: Severe Worsened by: n/a Relieved by: n/a Associated Symptoms: none Narrative: Patient states she had issues with having her menstrual cycle several months ago, so her doctor put her on progesterone and then she started having cycles again. This time, bleeding started with normal timing of her menstrual cycle, but ever since then, she has been continuing to bleed heavily for the last 3 weeks and has not been able to see her PRODUCTION SUPPORT DEVELOPER yet and was advised to come to the emergency department. She has no systemic symptoms. She has no significant cramping. She is sexually active and does not think she is . No urinary symptoms. Does not have concerned that she has an STD. She states that a couple of times, she has seen what appeared to be dark colored blood clots that have been slimy but denies any other discharge or vaginal pain/itching. Past Medical History - Allergies and Home Meds Allergies/Adverse Reactions: Allergies No Known Allergies Allergy (Verified 07/20/18 12:16) Primary Care Physician: Care Physician,No Primary [Primary Care Provider] - Smoking Status: Never smoker Review of Systems General: Denies: Chills, Fever, Malaise, Sweats Cardiovascular: Denies: Chest pain, Palpitations Respiratory: Denies: Dyspnea, Cough, Dyspnea on exertion Gastrointestinal: Denies: Abdominal pain, Nausea, Vomiting, Diarrhea, Melena, Hematochezia Genitourinary: Reports: - - vaginal bleeding w/ clots. Denies: Dysuria, Hematuria, Frequency Skin: Denies: Rash Neurological: Denies: Headache, Weakness, Numbness Physical Exam Vital Signs/Narrative: Vital Signs 07/20/18 12:16 98.4 F 100 17 153/81 H 98 Inital Vital Signs reviewed: Yes General: Well nourished, Well developed, - - well-appearing, nad Head: Normocephalic, Atraumatic Eyes: Perrl, EOMI ENT: Moist mucous membranes, No rhinorrhea Neck: Supple, Nontender Cardiovascular: Regular rate, Regular rhythm, No murmurs, Tachycardia - mild Respiratory: No distress, CTA bilaterally, Chest nontender Abdomen: Soft, Nontender, Nondistended, Normal bowel sounds : ext: no lesions. spec: blood AND clots in vault, clot in os, no active bleed Back: Nontender, Normal Inspection. Negative for: CVA tenderness Extremities: Nontender, No edema Skin: Normal color, No rash Neurological: Alert, Oriented x3, Cranial nerves II-XII grossly intact, Normal Strength, Normal Sensation Psychological: Normal affect Diagnostic/Tx/Re-eval Laboratory Results WBC 8.7 RBC 3.52 L Hgb 10.3 L Hct 31.1 L MCV 88.4 MCH 29.3 MCHC 33.1 RDW 12.3 RDW Differential 37.9 - Medical Decision Making Patient is clinically and hemodynamically stable, labs show mild anemia but nothing that needs to be dealt with emergently. is negative. Discussed with her client support representative Dr. Zhang, he agrees with discharge and close outpatient follow- up within the next week and he will call in a prescription for her to fill today. Patient is comfortable with that plan. ED Disposition - Plan for ED Patient: Disposition: Home or Assisted Living Chief Complaint: Vag Bleeding Diagnosis: Menorrhagia Instructions: ED Bleed Irregular Vaginal Referrals: Alexey Zhang MD [STAFF PHYSICIAN] - 1 Week What to do if you have Problems For any increased pain, shortness of breath, bleeding, nausea or vomiting, chest pain, or any unexpected problems, contact your Primary Care Provider. Call [facility] ([phone]) or report to the closest Emergency Room. Call 911 if necessary. 07/20/18 1422 <Electronically signed by Kory Ho MD> Date Kory Ho MD Cosigner Signature (If Indicated): Date CC: No Primary Care Physician CBC W/DIFF, AUTOMATED Collected: 07/20/2018 Status: F Source: [place] 1:20 PM [facility] REPOSITORY TYPE CODE TESTS RESULT OUT OF RANGE REFERENCE UNITS LAB L100.1000 4.4-11.0 K/mm3 Normal WBC 8.7 LAB L100.1200 4.2-5.4 M/mm3 Low RBC 3.52 LAB L100.1300 12.0-15.0 g/dl Low HGB 10.3 LAB L100.1400 37-47 % Low HCT 31.1 LAB L100.1500 81-99 fL Normal MCV 88.4 LAB L100.1600 27.0-32.0 pg Normal MCH 29.3 LAB L100.1700 32-36 g/gl Normal MCHC 33.1 LAB L100.1810 11.6-14.6 % Normal RDW CV 12.3 LAB L100.1820 35.1-43.9 fl Normal RDW SD 37.9 LAB L100.1900 150-450 K/mm3 Normal PLT 361 LAB L100.2000 6.2-12.0 fl Normal MPV 8.9 LAB L100.2100 47-70 % Normal NEUT% 62.6 LAB L100.2200 19-41 % Normal LY% 28.1 LAB L100.2300 0-10 % Normal MONO% 6.0 LAB L100.2400 0-5 % Normal EO% 2.9 LAB L100.2500 0-1 % Normal BASO% 0.1 LAB L100.2550 0.0-0.9 % Normal IM GRAN % 0.300 Result Comment: IG% - Immature Granulocytes (promyelocytes, myelocytes and metamyelocytes) > 1% indicates that a LEFT SHIFT is Present. LAB L100.2620 2.0-7.7 X10 3/uL Normal Absolute Neut 5.5 LAB L100.2720 0.83-4.51 X10 3/ul Normal Absolute Lymph 2.45 Performed By: #### L100.0100 #### [facility] [address] [place], [place], [address] URINALYSIS, COMPLETE Collected: 07/20/2018 Status: F Source: [place] 1:10 PM [facility] REPOSITORY Order Comment: COLOR OF URINE MAY AFFECT DIPSTICK RESULTS. How was Urine Obtained? CLEAN CATCH TYPE CODE TESTS RESULT OUT OF RANGE REFERENCE UNITS LAB L400.4050 0-5 /hpf WBC Normal 0-5 SEEN LAB L400.4100 0-5 /hpf > Normal RBC-UA 100 SEEN LAB L400.4150 5-10 /hpf SQUAM 0 Normal EPI SEEN LAB L400.4300 None Seen /hpf 0 Normal BACTERIA SEEN LAB L400.4350 <or=2+ /hpf 0 Normal MUCUS, URINE SEEN LAB L400.3000 Yellow COLOR Normal Red LAB L400.3050 Clear Normal CLARITY Turbid LAB L400.3200 Normal mg/dl Normal GLUCOSE, UR Normal LAB L400.3300 Negative mg/dL Normal BILIRUBIN URINE Negative LAB L400.3400 Negative mg/dl High 15 KETONE UR LAB L400.3465 1.002-1.030 Normal SP.GR. DIPSTX 1.015 LAB L400.3550 5.0 - 8.0 pH UR Normal 6.5 LAB L400.3600 Negative mg/dl High PROT DIPSTX 500 LAB L400.3700 Normal mg/dl Normal UROBILI Normal LAB L400.3750 Negative Normal NITRITE UR Negative LAB L400.3780 Negative /ul High OCCULT BLOOD-UR 250 LAB L400.3800 Negative /ul LEUK Normal ESTERASE Negative Performed By: #### L400.0001 #### [facility] [address] [place], [address] ,URINE Collected: 07/20/2018 Status: F Source: [place] 1:10 PM [facility] REPOSITORY TYPE CODE TESTS RESULT OUT OF REFERENCE UNITS RANGE LAB L400.8000 Negative Normal HCGUQUAL Negative Result Comment: Very dilute urine specimens, as indicated by a low specific gravity, may not contain corporate sales representative levels of hCG. If is still suspected, a first morning urine specimen should be collected 48 hours later and tested. Performed By: #### L400.7600 #### [facility] [address] [facility] [place], [address] PAP I-G W/RFX HRHPV Collected: 04/08/2018 Status: F Source: [place] 9:30 AM [facility] REPOSITORY Order Comment: CYTOLOGY INFORMATION: - CLINICAL INFORMATION: - DATE LMP/MENOPAUSE: 02/07/18 LMP - COLLECTION VIAL: Thin Prep Vial - PRODUCTION SUPPORT DEVELOPER SOURCE: CERVICAL/ENDOCERVICAL - COLLECTION TECHNIQUE: BRUSH/SPATULA Specimen Comment: [id number] Specimen Comment: No. of containers..01 ThinPrep Vial TYPE CODE TESTS RESULT OUT OF RANGE REFERENCE UNITS LAB L7400.0800 . Normal DIAGN Comment Result Comment: NEGATIVE FOR INTRAEPITHELIAL LESION AND MALIGNANCY. LAB L7400.0900 . Normal ADEQ Comment Result Comment: Satisfactory for evaluation. Endocervical and/or squamous metaplastic cells (endocervical component) are present. LAB L7400.1400 . Normal PERFORM Comment Result Comment: Cleveland Villar, Malt House Kiln Operator (ASCP) LAB L7400.2575 . Normal TEST METHOD Comment Result Comment: This liquid based ThinPrep(R) pap test was screened with the use of an image guided system. LAB L7400.2600 . Normal . COMM LAB L7400.2700 . Normal PAPSMR Comment Result Comment: The Pap smear is a screening test designed to aid in the detection of premalignant and malignant conditions of the uterine cervix. It is not a diagnostic procedure and should not be used as the sole means of detecting cervical cancer. Both false-positive and false-negative reports do occur. LAB L7400.2800 . Normal HPV RFLX Comment Result Comment: The HPV DNA reflex criteria were not met with this specimen result therefore, no HPV testing was performed. Performed at: - [facility] [id number] Film Editor Supervisor: Elana Tate MD, Phone: [phone] Performed By: #### L7400.0350 #### [facility] (refer to report for specific site) refer to report for address and phone number HCG TITER QUANT., Collected: 04/01/2018 Status: F Source: [place] SERUM 2:03 PM [facility] REPOSITORY TYPE CODE TESTS RESULT OUT OF RANGE REFERENCE UNITS LAB L700.8000 <9 non-preg mIU/mL Normal HCG < 1 QUANT. Performed By: #### L700.8000 #### [facility] [address] [place], [place], [id number] HEMOGLOBIN A1C Collected: 04/01/2018 Status: F Source: [place] 2:03 PM [facility] REPOSITORY TYPE CODE TESTS RESULT OUT OF RANGE REFERENCE UNITS LAB L501.9985 4.2-6.3 % Normal HGB A1C 5.2 Performed By: #### L501.9985 #### [facility] [address] [place], [place], [address] FREE T3 Collected: 04/01/2018 Status: F Source: [place] 2:03 PM [facility] REPOSITORY TYPE CODE TESTS RESULT OUT OF RANGE REFERENCE UNITS LAB L501.22445 2.18-3.98 pg/mL Normal FREE T3 2.7 Performed By: #### L501.17852, L501.9520, L506.0400, L3100.5125, L3100.5170, L3100.5420 #### [facility] [address] [place], [place], [address] THYROID STIM HORMONE Collected: 04/01/2018 Status: F Source: [place] (TSH) 2:03 PM [facility] REPOSITORY TYPE CODE TESTS RESULT OUT OF RANGE REFERENCE UNITS LAB L501.9520 0.358-3.74 uIU/mL Normal TSH 1.06 Performed By: #### L501.34235, L501.9520, L506.0400, L3100.5125, L3100.5170, L3100.5420 #### [facility] [address] [place], [place], [address] T4 FREE DIRECT Collected: 04/01/2018 Status: F Source: [place] 2:03 PM [facility] REPOSITORY TYPE CODE TESTS RESULT OUT OF RANGE REFERENCE UNITS LAB L506.0400 0.76-1.46 ng/dL Normal T4 FREE 0.92 DIRECT Performed By: #### L501.04282, L501.9520, L506.0400, L3100.5125, L3100.5170, L3100.5420 #### [facility] [address] [place], [place], [id number] FOLLICLE STIMULATING Collected: 04/01/2018 Status: F Source: [place] HORMONE 2:03 PM [facility] REPOSITORY TYPE CODE TESTS RESULT OUT OF RANGE REFERENCE UNITS LAB L3100.5125 mIU/mL Normal FSH 6.3 Result Comment: NORMAL REFERENCE RANGES FEMALE FOLLICULAR 2.3 - 12.6 mIU/mL MID-CYCLE PEAK 5.2 - 17.5 mIU/mL LUTEAL 1.7 - 12.9 mIU/mL POST-MENOPAUSAL ON MHT 5.9 - 72.8 mIU/mL NOT ON MHT 12.7 - 132.2 mlU/mL MALE 0.7 - 10.8 mIU/mL NEW TEST METHOD AND REFERENCE RANGES JANUARY 11, 2012 Performed By: #### L501.96441, L501.9520, L506.0400, L3100.5125, L3100.5170, L3100.5420 #### [facility] [address] [place], [place], [address] LUTEINIZING HORMONE Collected: 04/01/2018 Status: F Source: [place] 2:03 PM [facility] REPOSITORY TYPE CODE TESTS RESULT OUT OF RANGE REFERENCE UNITS LAB L3100.5170 mIU/mL Normal LH 2.5 Result Comment: NORMAL REFERENCE RANGES FEMALE FOLLICULAR 1.9 - 26.2 mIU/mL MID-CYCLE PEAK 22.8 - 76.1 mIU/mL LUTEAL 0.6 - 16.6 mIU/mL POST-MENOPAUSAL ON MHT 1.1 - 52.4 mIU/mL NOT ON MHT 8.6 - 61.8 mIU/mL MALE 1.2 - 10.6 mIU/mL NEW TEST METHOD AND REFERENCE RANGES JANUARY 11, 2012 Performed By: #### L501.89504, L501.9520, L506.0400, L3100.5125, L3100.5170, L3100.5420 #### [facility] [address] [place], [place], [address] PROLACTIN Collected: 04/01/2018 Status: F Source: [place] 2:03 PM [facility] REPOSITORY TYPE CODE TESTS RESULT OUT OF RANGE REFERENCE UNITS LAB L3100.5420 ng/mL Normal PROLACTIN 5.2 Result Comment: NORMAL REFERENCE RANGES FEMALE NON- 2.2 - 30.3 ng/mL 8.1 - 347.6 ng/mL POST-MENOPAUSAL 0.7 - 31.5 ng/mL MALE 2.5 - 17.4 ng/mL NEW TEST METHOD AND REFERENCE RANGES JANUARY 11, 2012 Performed By: #### L501.38994, L501.9520, L506.0400, L3100.5125, L3100.5170, L3100.5420 #### [facility] [address] [place], [place], [address] HCG TITER QUANT., Collected: 03/24/2018 Status: F Source: [place] SER[place] 12:59 PM [facility] REPOSITORY TYPE CODE TESTS RESULT OUT OF RANGE REFERENCE UNITS LAB L700.8000 <9 non-preg mIU/mL Normal HCG < 1 QUANT. Performed By: #### L700.8000 #### [facility] [address] [place], [place], [address] ALLERGIES ALLERGIES DATE TYPE / CODE NAME / CODE REACTION SEVERITY SOURCE 07/22/2018 Drug No Known Unknown [facility] Allergy/416 Allergies/[id number] Hospital [id number](SNOM 0388(RXNORM) Repository ED CT) Drug NO KNOWN [facility] Class/64369 ALLERGIES Other [place] 1003(SNOMED Repository CT) ENCOUNTERS ENCOUNTERS ADMIT/DISCHARGE ACCOUNT ADMITTING ENCOUNTER LOCATION SOURCE NUMBER CLASS 07/22/2018/07/23/20 [id number] [place], Ambulatory [address] ing:NP7Vvnz: Repository PQ512Ddl: 1 07/22/2018/07/22/20 [id number] Emergency [address] Other [place] Repository 07/20/2018/07/20/20 [id number] Emergency [address] ing:ED Repository 04/08/2018 [id number] Ambulatory [facility] ing:LABSPEC Repository 04/01/2018 [id number] [facility] ing:WOBLAB Repository 03/24/2018 [id number] [facility] ing:WOBLAB Repository PAYERS PAYERS ENCOUNTER GUARANTOR PAYER SUBSCRIBER SOURCE 07/22/2018 RENUKA Woodward Primary RENUKA SANTANA [facility]P [facility] [place]: [id number] [id number] Repository [address]Shv: [phone] Date:2018-07-22P O [phone] () [address]ATTN: [place] [address]TJ: 07/22/2018 Secondary NOT GIVENUNK [employer] Insurance:SELF PAY [facility] Number: Effective Repository Date:2018-07-22 07/20/2018 RENUKA Woodward Primary RENUKA SANTANA Insurance[facility]CAREURCEP [facility] Number: [id number], [place] [id number] Repository [address]Sch: [phone] Date:2018-07-20P O [phone] () [address]ATTN: [place] [address]ZQ: 07/20/2018 Secondary NOT GIVENUNK [employer] Insurance:SELF PAY [facility] Number: Effective Repository Date:2018-07-20 04/08/2018 Renuka Woodward Primary Renuka Woodward [employer] [id number] Insurance:CARESOURCEP OsbornDOB: [facility] Number: [id number] [id number] Repository [address]Net: [phone]) Date:2018-04-08P O [phone] (HP) [address]ATTN: [place], [place] [address]JA: 04/08/2018 Secondary NOT GIVENUNK [place] Insurance:SELF PAY [facility] Number: Effective Repository Date:2018-04-08 04/01/2018 Renuka Woodward Primary Renuka Woodward [place] [id number] Insurance:CARESOURCEP OsbornDOB[facility] Number: [id number] [id number] Repository [address]Rhq: ([phone]) Date:2018-04-01P O [phone] (HP) [address]ATTN: [place] [address]LS: 04/01/2018 Secondary NOT GIVENUNK [place] Insurance:SELF PAY [facility] Number: Effective Repository Date:2018-04-01 03/24/2018 Renuka Woodward Primary Renuka Woodward [place] [id number] Insurance:CARESOURCEP OsbornDOB: [facility] Number: [id number], [place] [id number] Repository [id number]: ([phone] Date:2018-03-24P O [phone] (HP) [address]ATTN: [place] [address]MW: 03/24/2018 Secondary NOT GIVENUNK [place] Insurance:SELF PAY [facility] Number: Effective Repository Date:2018-03-24
== END 2018-07-20 14:47 | disposition home or self-care (01) ==
PROVIDERS: Emergency Provider Emergency Medicine
DX: N92.0 Excessive and frequent menstruation with regular cycle (principal)
CPT/HCPCS: 36415; 81001; 81025; 85025; 99283

== ENCOUNTER 2018-07-22 19:49 | Observation (INO) | payer MEDICAID, SELFPAY ==
[2018-07-22 19:59] VITALS: BMI 40.3
[2018-07-22 20:00] VITALS: BP 110/57; PULSE 92; RESP 18; TEMP 36.8; O2SAT 99
--- NOTE | 2018-07-22 20:02 | PCM.HPOB.BLA ---
History and Physical Date of Admission: 07/22/18 HISTORY OF PRESENT ILLNESS: On 07/22/2018, Renuka Sagastume, a 28 year old female 2 0 0 0 2, presented for: -- Admitting to [facility] from [place] ED. Pt with heavy bleeding, starting in last week. She has been on Provera in past due to amenorrhea. Had normal prolactin, TSH, Free T3. Hgb A1C , FSH and LH all in March 2018. Has not had a pelvic sono done at [facility] or in [facility] (outside of ). Went to [place] ED today for evaluation after calling in to [facility] to state she feels like and is SOB and bleeding heavily. [facility] does not have ADVERTISING EDITOR service, no DepoProvera available. No pelvic sono can be done. Recommended she come to [facility] for direct admit, overnight observation, serial CBC, possible blood transfusion and pelvic sono. Plan of care [facility] [place] [facility] Renuka agreed. EB -- vaginal bleeding which began 06/03/18. Renuka claims it started with period and has been present continuously. It is located in the vagina. It is aggravated by nothing and relieved by Nothing . OCP is not working for her as bleeding continues. An associated sign and symptom is h/o amenorrhea, irreg periods. Induced period with Provera in past.. Additional comment: Hgb 10 at [facility] ED w d ago. , now 8 gm/dl at [place] ED tonight. States she is feeling a little better than when she went to ED at [place]. Relates when she called in she was at home alone with 3 yr old also and feeling very overwhelmed with bleeding. No longer SOB. States period was irregular in past, but has been about q month since January 2018. ALLERGIES: No Known Allergies MEDICATIONS HISTORY: Current medications prescribed by our practice are: 1. ferrous gluconate 324 mg (37.5 mg iron) tablet, one tab PO twice daily 2. Sprintec (28) 0.25 mg-35 mcg tablet, two tabs po daily for 10 days 3. Zofran 4 mg tablet, one tab PO every 6 hours as needed for nausea REVIEW OF SYSTEMS: GENERAL - Denies fever, or chills, feels awful and dizzy. SKIN - Denies skin changes EYES - Denies visual changes EARS - Denies difficulty hearing NOSE - Denies nasal congestion or bleeding MOUTH - Denies sore throat or difficulty swallowing NECK - Denies pain or swelling RESPIRATORY - short of breath CARDIOVASCULAR - Denies palpitations or chest pain GASTROINTESTINAL - Denies nausea, vomiting, diarrhea, constipation GENITOURINARY - heavy bleeding. OCP not working. MUSCULOSKELETAL - Denies joint or muscle pain NEUROLOGICAL - Denies localized numbness or weakness PSYCHIATRIC - Denies depression or anxiety ENDOCRINE - Denies heat or cold intolerance, weight loss or gain HEMATO-IMMUNOLOGIC - Denies excessive bleeding with cuts PAST HISTORY: Breast/Ovarian/Colon Cancers - Great Grandmother breastfeed cancer Infections - Chicken pox Illnesses - none Accidents - no injuries of consequence History of Abnormal PAPS - NO Hospitalizations - Childbirth and see surgery SURGICAL HISTORY: 1. 01/18/2015 Dr Alexey Zhang 2. 02/13/2011 [place] LOMELI MENSTRUAL HISTORY: LMP Known?- DefiniteAmount/Duration - excess amount CD 20 now, Regularity - Irregular and missed periods, LMP - 07/02/18, Age Onset Menarche - 13 PAST PREGNANCIES: Total Pregnancies - 2; Full Term Pregnancies - 2; Premature - 0; Abortions, Induced - 0; Abortions, Spontaneous - 0; Ectopics - 0; Multiple Births - 0; Living Children - 2 FAMILY HISTORY (OLD): Maternal Grandmother: pancreatic CA. Maternal Grandfather: Liver cancer. FAMILY HISTORY: MaternalGrandparent - Cancer; MaternalGrandparent - Carcinoma of the pancreas; SOCIAL HISTORY: Alcohol Use - denies drinking Smoking - Never Diet - could use improvement Lifestyle - moderate stress lifestyle and single Exercise - minimal Seat Belt Use - always Employer - [employer] Job Description - dental assistant athletic trainer Illicit Drug Use - denies use of street drugs Sexual Activity - [employer]IVE [employer] PARTNER Residence - Lives with /FOB Place of - [place], [place] Hours Worked - 30 hr per week Spouse-Sig Other Name - Dwayne Morales Spouse-Sig Other Occupation - Charge Hand Spouse-Sig Other Phone No - [phone] Children Name(s) - Hakeem ', Kristen PHYSICAL EXAMINATION BP: 110/57 Pulse 92 Pulse ox: 99% on RA Resp 18 CONSTITUTIONAL - NAD, well nourished, and well developed. Slightly pale appearing. [place] with fair complexion. HEENT - Normocephalic, PERRLA, EOMI NECK - no nuchal rigidity EXTREMITIES - No edema or calf tenderness NEUROLOGICAL - Cranial nerves II-XII grossly intact PSYCHIATRIC - A and O to time, place, person, mood and affect ASSESSMENT: 1. Excessive Bleeding In The Premenopausal Period 2. Other Specified Irregular Menstruation PLAN BY DIAGNOSIS: 1. Excessive Bleeding In The Premenopausal Period and Other Specified Irregular Menstruation H/o amenorrhea and induced period with Provera. Now with heavy bleeding in last 7 days. Period started 07/04/18 and bleeding still, CD #9 Hgb 10 in [facility] ED on 07/20/18, dec to 8 g/dl at [facility] ED. No ADVERTISING EDITOR service, no sono at [facility]. Recommend pt come to [facility] for overnight observation. Reviewed options for management with Renuka. Not tolerating Sprintec and / or iron. Advised may consider inc dose of OCP (but not likely to tolerate), IV estrogen to slow bleeding, or DepoProvera 150 mg IM x one. Elects DepoProvera 150 mg IM for now. Plan for serial CBC and will type and screen tonight also in case transfusion required. Clinically stable at present, but with continued bleeding. Continue observation.
[2018-07-22] MEDS: Acetaminophen 500 MG Tablet PO (21:48)
[2018-07-22] MEDS: Zolpidem Tartrate 5 MG Tablet PO (21:48)
[2018-07-22] MEDS: MedroxyPROGESTERone 150 MG/ML Syringe IM (21:49)
[2018-07-22 21:57] LABS: Hematocrit 23.6 % (37-47); Hemoglobin 7.7 g/dl (12.0-15.0); Mean Corp Hgb Conc 32.6 g/gl (32-36); Mean Corpuscular Hgb 28.4 pg (27.0-32.0); Mean Corpuscular Volume 87.1 fL (81-99); Mean Platelet Vol. 8.5 fl (6.2-12.0); Platelet Count 333 K/mm3 (150-450); RBC Distribution Width CV 12.9 % (11.6-14.6); RBC Distribution Width SD 40.4 fl (35.1-43.9); Red Blood Count 2.71 M/mm3 (4.2-5.4); White Blood Count 13.9 K/mm3 (4.4-11.0)
[2018-07-22 21:59] LABS: Scan Indicated on CBC? Y/N NO
[2018-07-23 02:05] VITALS: BP 103/59; PULSE 89; RESP 16; TEMP 36.6; O2SAT 100
[2018-07-23 06:30] VITALS: BP 92/58; PULSE 86; RESP 16; TEMP 36.6; O2SAT 100
[2018-07-23 07:54] LABS: Hematocrit 21.8 % (37-47); Hemoglobin 7.1 g/dl (12.0-15.0); Mean Corp Hgb Conc 32.6 g/gl (32-36); Mean Corpuscular Hgb 28.6 pg (27.0-32.0); Mean Corpuscular Volume 87.9 fL (81-99); Mean Platelet Vol. 8.8 fl (6.2-12.0); Platelet Count 287 K/mm3 (150-450); RBC Distribution Width CV 12.9 % (11.6-14.6); RBC Distribution Width SD 41.1 fl (35.1-43.9); Red Blood Count 2.48 M/mm3 (4.2-5.4); White Blood Count 8.3 K/mm3 (4.4-11.0)
[2018-07-23 07:55] LABS: Scan Indicated on CBC? Y/N NO
--- NOTE | 2018-07-23 08:00 | US_ITS ---
STUDY: ULTRASOUND OF THE FEMALE PELVIS - COMPLETE REASON FOR EXAM: Female, 28 years old. Menorrhagia. History of section. LMP: July 04, 2018. TECHNIQUE: Transvaginal primarily. A few additional transabdominal images were obtained for additional imaging of the left ovary. TECHNICAL QUALITY: Adequate. COMPARISON: None. FINDINGS: The uterus is anteverted and is in a midline position. The uterus measures 9.1 x 6.8 x 5.2 cm. There are subcentimeter Nabothian cysts of the cervix. The endometrium measures 23 mm in thickness, and is hyperechoic. There is no demonstrated endometrial mass. There is no demonstrated myometrial mass. I.U.D. - The patient does not have an I.U.D. The right ovary is visualized only with endovaginal imaging. The right ovary measures 6.0 x 5.6 x 3.7 cm. This includes a 4.6 x 3.8 x 3.2 cm simple appearing cyst. There is no visualized right adnexal mass or complex lesion. There is normal arterial and normal venous vascularity. The left ovary is visualized only on transabdominal imaging. The left ovary measures 3.5 x 2.3 x 2.0 cm. There is a simple appearing 1.8 x 1.6 x 1.2 cm cyst. There is no visualized left adnexal mass or complex lesion. There is normal arterial and normal venous vascularity. There is minimal fluid in the cul-de-sac. Polycystic ovary disease: No. US/Transvaginal Non- IMPRESSION: 1. Normal size, anteverted uterus with probable hyperplastic endometrial thickening. Blood clot in the endometrial cavity might also have this appearance. Neoplasm unlikely, but not excluded. 2. 4.6 cm simple appearing right ovarian cyst, and 1.8 cm probable follicular cyst in the left ovary. 3. Small volume free fluid in the cul-de-sac. Electronically Signed: Loy Canas MD at 10:43 EST , Service support ,
[2018-07-23 08:05] LABS: Anion Gap 7 (5-15); BUN 11 mg/dL (7-18); BUN/Creat Ratio 16.2 RATIO (10-20); Calcium,Total 8.1 mg/dL (8.5-10.1); Chloride 107 mmol/L (98-107); Creatinine, Serum 0.68 mg/dL (0.55-1.02); EST Glomerular Filtration Rate 109 mL/min (>60); Est Glom Filt Rate - Afr Amer 131 mL/min (>60); Estimated Creatinine Clearance 109.84 ml/min; Glucose 107 mg/dL (74-106); Potassium 3.4 mmol/L (3.5-5.1); Sodium Level 142 mmol/L (136-145)
[2018-07-23 08:36] VITALS: BP 103/59; PULSE 86; RESP 16; TEMP 36.9; O2SAT 99
[2018-07-23] MEDS: Ferrous Gluconate 324 MG Tablet PO (08:46)
[2018-07-23] MEDS: 0.9% NaCl Peripheral Flush Adult/Peds IV (08:53)
[2018-07-23] MEDS: Ondansetron 4 MG/2 ML Vial IV (08:53)
--- NOTE | 2018-07-23 09:32 | PN_ITS ---
Subjective: Hospital Day #2 Menorrhagia, Excessive and prolonged bleeding. Acute blood loss anemia Doing much better today. Eating breakfast, no longer passing clots. Very minimal bleeding now. States bedside sono just done. Denies being dizzy. Hgb with further drift down today. States she has iron at home and also RX for zofran. Objective: sitting up in bed, NAD, Eating breakfast. - Physical Exam General: Alert, Oriented x3, Cooperative, No apparent distress HEENT: Atraumatic Neck: Supple Abdomen: - - anila pad evaluated: spot of dk brn noted (no clots, no active bleeding) Extremities: No edema Neurological: Cranial nerves II-XII grossly intact Psych/Mental Status: Normal Affect, Appropriate Vital Signs Temp Pulse Resp BP Pulse Ox 98.4 F 86 16 103/59 L 99 07/23/18 08:36 07/23/18 08:36 07/23/18 08:36 07/23/18 08:36 07/23/18 08:36 Oxygen Delivery Method Room Air Weight: 109.854 kg Body Mass Index (BMI) 40.3 Intake and Output for Last 24 Hours 07/21/18 07/22/18 07/23/18 23:59 23:59 23:59 Intake Total 120 / 120 250 / 250 Output Total 200 / 200 100 / 100 Balance -80 / -80 150 / 150 Laboratory Tests Past 24 Hrs 07/22/18 07/22/18 07/23/18 21:45 21:45 07:03 WBC 13.9 H 8.3 RBC 2.71 L 2.48 L Hgb 7.7 L 7.1 L Hct 23.6 L 21.8 L MCV 87.1 87.9 MCH 28.4 28.6 MCHC 32.6 32.6 RDW 12.9 12.9 RDW Differential 40.4 41.1 Plt Count 333 287 MPV 8.5 8.8 Sodium Potassium Chloride Carbon Dioxide Anion Gap BUN Creatinine Estim Creat Clear Calc Est GFR (MDRD) Af Amer Est GFR (MDRD) Non-Af BUN/Creatinine Ratio Glucose Calcium Blood Type O POSITIVE Antibody Screen NEGATIVE 07/23/18 07:03 WBC RBC Hgb Hct MCV MCH MCHC RDW RDW Differential Plt Count MPV Sodium 142 Potassium 3.4 L Chloride 107 Carbon Dioxide 28.0 Anion Gap 7 BUN 11 Creatinine 0.68 Estim Creat Clear Calc 109.84 Est GFR (MDRD) Af Amer 131 Est GFR (MDRD) Non-Af 109 BUN/Creatinine Ratio 16.2 Glucose 107 H Calcium 8.1 L Blood Type Antibody Screen Medical Necessity - Tobacco Use Smoking Status: Never smoker Tobacco Use: Non-smoker Assessment/Plan HD#2 Menorrhagia, excessive and prolonged vaginal bleeding. Acute blood loss anemia. Stable overnight since DepoProvera given Clinically stable with minimal bleeding now. AVSS Denies dizziness Will ambulate If tolerating all well: dischg to home later today RTO as scheduled with Dr. Zhang in 3 d for additional evaluation and halfway plan.
--- NOTE | 2018-07-23 09:36 | PCM.DC.SUM ---
Discharge Date and Diagnosis Date of Admission: 07/22/18 Date of Discharge: 07/23/18 - Primary Discharge Diagnosis Menorrhagia Irregular and excessive vaginal bleeding Acute blood loss anemia Hospital Course and Treatment Imaging Results: 07/23/18 08:00 Transvaginal Non- [US] Urgent Operations: - Summary of Care Provided: The patient is a 28 year old F Presents from [place] ED with CC of heavy vaginal bleeding Bleeding since 07/04/18 and now CD 9. Had been given Provera in past to regulate cycles, amenorrhea. Most recently given Sprintec two po daily and ferrous gluconate 324 mg po bid to control and treat bleeding. nausea on this regimen and continued bleeding. Hgb at [facility] 10 g/dl then to [place] tow days later Hgb at 8 g/dl. Advised hospital observation with serial hgb and exams , possible blood transfusion. DepoProvera 150 mg IM x one given on 07/22/18. Last pm Hgb here 7.7 g/dl and this am Hgb 7.1 g/dl. Pt is clinically stable, no longer bleeding heavily or passing clots. Pelvic sono done, results pending. Dischg home today To f/u with Dr. Zhang as scheduled on 07/26/18 in office for continued plan of care. - Physical Exam Vital Signs Temp Pulse Resp BP Pulse Ox 98.4 F 86 16 103/59 L 99 07/23/18 08:36 07/23/18 08:36 07/23/18 08:36 07/23/18 08:36 07/23/18 08:36 Oxygen Delivery Method Room Air Weight: 109.854 kg Body Mass Index (BMI) 40.3 Intake and Output for Last 24 Hours 07/21/18 07/22/18 07/23/18 23:59 23:59 23:59 Intake Total 120 / 120 250 / 250 Output Total 200 / 200 100 / 100 Balance -80 / -80 150 / 150 Laboratory Tests Past 24 Hrs 07/22/18 07/22/18 07/23/18 21:45 21:45 07:03 WBC 13.9 H 8.3 RBC 2.71 L 2.48 L Hgb 7.7 L 7.1 L Hct 23.6 L 21.8 L MCV 87.1 87.9 MCH 28.4 28.6 MCHC 32.6 32.6 RDW 12.9 12.9 RDW Differential 40.4 41.1 Plt Count 333 287 MPV 8.5 8.8 Sodium Potassium Chloride Carbon Dioxide Anion Gap BUN Creatinine Estim Creat Clear Calc Est GFR (MDRD) Af Amer Est GFR (MDRD) Non-Af BUN/Creatinine Ratio Glucose Calcium Blood Type O POSITIVE Antibody Screen NEGATIVE 07/23/18 07:03 WBC RBC Hgb Hct MCV MCH MCHC RDW RDW Differential Plt Count MPV Sodium 142 Potassium 3.4 L Chloride 107 Carbon Dioxide 28.0 Anion Gap 7 BUN 11 Creatinine 0.68 Estim Creat Clear Calc 109.84 Est GFR (MDRD) Af Amer 131 Est GFR (MDRD) Non-Af 109 BUN/Creatinine Ratio 16.2 Glucose 107 H Calcium 8.1 L Blood Type Antibody Screen Discharge Diet: No Restrictions Discharge Activity: May Shower, May Take a Tub Bath Call your doctor if you observe: Fever of 101 or Higher, Using more than one pad per hour, Shortness of breath Home Medications: Medications to take at Discharge NK 07/20/18 Primary Care Physician: Care Physician,No Primary [Primary Care Provider] - Please Follow Up With: Alexey Zhang MD - [phone] When: as scheduled on 07/26/18 Disposition: Home Patient Condition:: Stable Medical Necessity - Tobacco Use Smoking Status: Never smoker Tobacco Use: Non-smoker Meaningful Use Info Meaningful Use Diagnoses (Choose all that apply): None applicable
--- NOTE | 2018-07-23 09:41 | DS.PCM_ITS ---
Discharge Date and Diagnosis Date of Admission: 07/22/18 Date of Discharge: 07/23/18 - Primary Discharge Diagnosis Menorrhagia Irregular and excessive vaginal bleeding Acute blood loss anemia Hospital Course and Treatment Imaging Results: 07/23/18 08:00 Transvaginal Non- [US] Urgent Operations: - Summary of Care Provided: The patient is a 28 year old F Presents from [place] ED with CC of heavy vaginal bleeding Bleeding since 07/04/18 and now CD 9. Had been given Provera in past to regulate cycles, amenorrhea. Most recently given Sprintec two po daily and ferrous gluconate 324 mg po bid to control and treat bleeding. nausea on this regimen and continued bleeding. Hgb at [facility] 10 g/dl then to [place] tow days later Hgb at 8 g/dl. Advised hospital observation with serial hgb and exams , possible blood transfusion. DepoProvera 150 mg IM x one given on 07/22/18. Last pm Hgb here 7.7 g/dl and this am Hgb 7.1 g/dl. Pt is clinically stable, no longer bleeding heavily or passing clots. Pelvic sono done, results pending. Dischg home today To f/u with Dr. Zhang as scheduled on 07/26/18 in office for continued plan of care. - Physical Exam Vital Signs Temp Pulse Resp BP Pulse Ox 98.4 F 86 16 103/59 L 99 07/23/18 08:36 07/23/18 08:36 07/23/18 08:36 07/23/18 08:36 07/23/18 08:36 Oxygen Delivery Method Room Air Weight: 109.854 kg Body Mass Index (BMI) 40.3 Intake and Output for Last 24 Hours 07/21/18 07/22/18 07/23/18 23:59 23:59 23:59 Intake Total 120 / 120 250 / 250 Output Total 200 / 200 100 / 100 Balance -80 / -80 150 / 150 Laboratory Tests Past 24 Hrs 07/22/18 07/22/18 07/23/18 21:45 21:45 07:03 WBC 13.9 H 8.3 RBC 2.71 L 2.48 L Hgb 7.7 L 7.1 L Hct 23.6 L 21.8 L MCV 87.1 87.9 MCH 28.4 28.6 MCHC 32.6 32.6 RDW 12.9 12.9 RDW Differential 40.4 41.1 Plt Count 333 287 MPV 8.5 8.8 Sodium Potassium Chloride Carbon Dioxide Anion Gap BUN Creatinine Estim Creat Clear Calc Est GFR (MDRD) Af Amer Est GFR (MDRD) Non-Af BUN/Creatinine Ratio Glucose Calcium Blood Type O POSITIVE Antibody Screen NEGATIVE 07/23/18 07:03 WBC RBC Hgb Hct MCV MCH MCHC RDW RDW Differential Plt Count MPV Sodium 142 Potassium 3.4 L Chloride 107 Carbon Dioxide 28.0 Anion Gap 7 BUN 11 Creatinine 0.68 Estim Creat Clear Calc 109.84 Est GFR (MDRD) Af Amer 131 Est GFR (MDRD) Non-Af 109 BUN/Creatinine Ratio 16.2 Glucose 107 H Calcium 8.1 L Blood Type Antibody Screen Discharge Diet: No Restrictions Discharge Activity: May Shower, May Take a Tub Bath Call your doctor if you observe: Fever of 101 or Higher, Using more than one pad per hour, Shortness of breath Home Medications: Medications to take at Discharge NK 07/20/18 Primary Care Physician: Care Physician,No Primary [Primary Care Provider] - Please Follow Up With: Alexey Zhang MD - [phone] When: as scheduled on 07/26/18 Disposition: Home Patient Condition:: Stable Medical Necessity - Tobacco Use Smoking Status: Never smoker Tobacco Use: Non-smoker Meaningful Use Info Meaningful Use Diagnoses (Choose all that apply): None applicable
[2018-07-23 13:34] VITALS: BP 129/64; PULSE 92; RESP 16; TEMP 36.8; O2SAT 100
--- NOTE | 2018-07-23 13:38 | PCM.DC ---
You will use the following diet at home:: No restrictions Discharge Activity: May Shower, May Take a Tub Bath May resume sexual activity in: 1 week Call your doctor if you observe: Fever of 101 or Higher, Using more than one pad per hour, Shortness of breath Allergies/Adverse Reactions: Allergies No Known Allergies Allergy (Verified 07/22/18 20:27) Medications to take at Discharge Acetaminophen [Tylenol] 500 - 1,000 mg PO Q6H PRN PRN tablet 07/23/18 Ferrous Gluconate 324 mg PO BIDCM tablet 07/23/18 Naproxen [Naprosyn] 250 - 500 mg PO Q8H PRN PRN tablet 07/23/18 Primary Care Physician: Care Physician,No Primary [Primary Care Provider] - Test Results: Test results from this visit will be discussed in further detail at your follow-up appointment, if applicable. Please Follow Up With: Alexey Zhang MD - [phone] When: as scheduled on 07/26/18 Proposed Discharge Date: 07/23/18
--- NOTE | 2018-07-23 13:42 | DCINST_ITS ---
You will use the following diet at home:: No restrictions Discharge Activity: May Shower, May Take a Tub Bath May resume sexual activity in: 1 week Call your doctor if you observe: Fever of 101 or Higher, Using more than one pad per hour, Shortness of breath Allergies/Adverse Reactions: Allergies No Known Allergies Allergy (Verified 07/22/18 20:27) Medications to take at Discharge Acetaminophen [Tylenol] 500 - 1,000 mg PO Q6H PRN PRN tablet 07/23/18 Ferrous Gluconate 324 mg PO BIDCM tablet 07/23/18 Naproxen [Naprosyn] 250 - 500 mg PO Q8H PRN PRN tablet 07/23/18 Primary Care Physician: Care Physician,No Primary [Primary Care Provider] - Test Results: Test results from this visit will be discussed in further detail at your follow- up appointment, if applicable. Please Follow Up With: Alexey Zhang MD - [phone] When: as scheduled on 07/26/18 Proposed Discharge Date: 07/23/18
--- OUTSIDE RECORDS SUMMARY | 2018-09-16 17:05 | XMS RPT_ITS ---
[...] Unknown N92.1 - Excessive Benekos, Dee Active [place] and frequent Community menstruation with Hospital irregular cycle / Repository N92.1(ICD-10) 07/25/2018 Unknown Z68.41 - Body mass Dacia, Dee Active [facility] index (BMI) Community 40.0-44.9, adult / Hospital Z68.41(ICD-10) Repository 07/22/2018 Active Excessive and SANDEEP FERNANDEZ Active [facility] frequent [facility] Other [place] menstruation with Repository irregular cycle / N92.1(ICD-10) 07/22/2018 Active Anemia, ROBBIN FERNANDEZK Active [facility] unspecified / VANDANA Other [place] D64.9(ICD-10) Repository 08/01/2018 Unknown N93.9 - Abnormal VICKORY SALEH Active [facility] uterine and Community vaginal bleeding, Hospital unspecified / Repository N93.9(ICD-10) 04/08/2018 Unknown Z12.4 - Encounter Alexey Zhang Active [facility] for screening for Community malignant neoplasm [facility] / Repository Z12.4(ICD-10) 04/01/2018 Unknown N91.2 - SealAlexey dykes Active [facility] Amenorrhea, Community unspecified / Hospital N91.2(ICD-10) Repository 03/25/2018 Unknown N91.1 - Secondary SealAlexey dykes Active [facility] amenorrhea / Community N91.1(ICD-10) Hospital Repository PROCEDURES PROCEDURES No Procedure Records FoundRESULTS RESULTS DISCHARGE INSTRUCTION Observed: 07/23/2018 Status: F Source: GENET 1:42 PM [facility] HOSPITAL REPOSITORY [facility] Medical Records Department [address] [place] [address] Instructions for Home/Discharge Instructions 07/23/18 1338 MR#: [id number] Acct: [id number] Name: RENUKA LAKE Rep #: [id number] : 1990 28 From: Dee Pederson MD [...] Follow Up With: Alexey Zhang MD - [phone] When: as scheduled on 07/26/18 Proposed Discharge Date: 07/23/18 07/23/18 1342 <Electronically signed by Dee Pederson MD> Date Dee Pederson MD CC: No Primary Care Physician DISCHARGE SUMMARY Observed: 07/23/2018 Status: F Source: [place] 9:42 AM [facility] REPOSITORY [facility] Medical Records Department [address] [place] [address] [place] [address] Discharge Summary 07/23/18 0936 MR#: [id number] Acct: [id number] Name: RENUKA LAKE Rep #: [id number] : 1990 28 From: Dee Pederson MD PCP: Care Physician, No Primary Status: ADM JV Y Location: [address] Discharge Date and Diagnosis Date of Admission: 07/22/18 Date of Discharge: 07/23/18 - Primary Discharge Diagnosis Menorrhagia Irregular and excessive vaginal bleeding Acute blood loss anemia Hospital Course and Treatment Imaging Results: 07/23/18 08:00 Transvaginal Non- [US] Urgent Operations: - Summary of Care Provided: The patient is a 28 year old F Presents from [facility] ED with CC of heavy vaginal bleeding Bleeding since 07/04/18 and now CD 9. Had been given Provera in past to regulate cycles, amenorrhea. Most recently given Sprintec two po daily and ferrous gluconate 324 mg po bid to control and treat bleeding. nausea on this regimen and continued bleeding. Hgb at [facility] 10 g/dl then to [facility] tow days later Hgb at 8 g/dl. [...] Follow Up With: Alexey Zhang MD - [phone] When: as scheduled on 07/26/18 Disposition: Home [...] F Source: GENET NO DIFF 7:03 AM [facility] REPOSITORY TYPE CODE TESTS RESULT OUT OF [...] 8.8 Performed By: #### L100.0500, L500.2500 #### [facility] [address] [place], [place], [address] BASIC METABOLIC Collected: 07/23/2018 Status: F Source: GENET PROFILE (BMP) 7:03 AM [facility] REPOSITORY TYPE CODE TESTS RESULT OUT OF [...] 7 Performed By: #### L100.0500, L500.2500 #### [facility] [address] [facility] [place], [address] TRANSVAGINAL Observed: 07/23/2018 Status: F Source: [place] NON- 12:01 AM [facility] REPOSITORY [facility] Imaging Services [address] [place] [address] Transvaginal Non- MR#: [id number] Acct: [id number] Name: RENUKA LAKE Rep #: [id number] : 1990 F 28 From: Tonny Canas MD PCP: Care Physician, No Primary Status: ADM JV Study: Transvaginal Non- Date of Exam: 07/23/18 Exam# [id number] Ordering Dr: Dee Pederson MD STUDY: ULTRASOUND [...] No Primary Care Physician; Dee Pederson MD Certified Registered Nurse Practitioner: Signed TYPE AND SCREEN Collected: 07/22/2018 Status: F Source: GENET 9:45 PM [facility] REPOSITORY Order Comment: Reason for Type AND Screen/Red Cells: HEMORRHAGE, VAGINAL TYPE CODE TESTS RESULT OUT OF RANGE REFERENCE UNITS LAB B10.0800 O Normal BLOOD TYPE GEL POSITIVE LAB B100.4000 Normal Antibody NEGATIVE Screen Performed By: #### B101.7450 #### [facility] [address] [facility] [place], [address] HISTORY AND PHYSICAL Observed: 07/22/2018 Status: F Source: [place] EXAM 8:58 PM [facility] REPOSITORY [facility] Medical Records Department [address] [place] [address] History and Physical 07/22/182001 MR#: [id number] Acct: [id number] Name: RENUKA LAKE Rep #: [id number] : 1990 28 From: Dee Pederson MD PCP: Care Physician, No Primary Status: ADM JV Y Location: [place] [address] History and Physical Date of Admission: 07/22/18 HISTORY OF PRESENT ILLNESS: On 07/22/2018, Renuka Sagastume, a 28 year old female 2 0 0 0 2, presented for: -- Admitting to [facility] from [facility]. Pt with heavy bleeding, starting in last week. She has been on Provera in past due to amenorrhea. Had normal prolactin, TSH, Free T3. Hgb A1C , FSH and LH all in March 2018. Has not had a pelvic sono done at [facility] or in ofc (outside of ). Went to [facility] ED today for evaluation after calling in to ofc to state she feels like and is SOB and bleeding heavily. [facility] does not have MEDICAL SALES ASSOCIATE service, no DepoProvera available. No pelvic sono can be done. Recommended she come to [facility] for direct admit, overnight observation, serial CBC, possible blood transfusion and pelvic sono. Plan of care discussed with [facility] ED on service johnie and Renuka agreed. [...] in past.. Additional comment: Hgb 10 at [facility] ED w d ago. , now 8 gm/dl at [facility] ED tonight. States she is feeling a little better than when she went to ED at [facility]. 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 No MEDICAL SALES ASSOCIATE service, no sono at [facility]. Recommend pt come to [facility] for overnight observation. Reviewed options for management [...] ED NOTE Observed: 07/22/2018 Status: COMPLETED Source: DRAIN 7:02 PM [facility] REPOSITORY HNO ID: [id number] Author: Leonela Redman RN Service: Emergency Medicine Author Type: Registered Nurse Type: ED Notes Filed: 07/22/2018 7:02 PM Note Text: Patient informed: the name of medication, why we are giving it, possible side effects, what they may expect to feel, and was offered a chance to ask questions, prior to the administration of Zofran ED NOTE Observed: 07/22/2018 Status: COMPLETED Source: DRAIN 6:58 PM [facility] REPOSITORY HNO ID: [id number] Author: Leonela Redman RN Service: Emergency Medicine Author Type: Registered Nurse Type: ED Notes Filed: 07/22/2018 7:15 PM Note Text: Patient c/o nausea requesting medication before transfer. Verbal order from for Zofran. ED NOTE Observed: 07/22/2018 Status: COMPLETED Source: DRAIN 6:11 PM [facility] REPOSITORY HNO ID: [id number] Author: Tanner Perez, RN Service: Emergency Medicine Author Type: Registered Nurse Type: ED Notes Filed: 07/22/2018 6:16 PM Note Text: Contacted [facility] for transport. Spoke with Savita, she was given requested patient information. She states [facility] will take the transport. ETA 1 hour. ED NOTE Observed: 07/22/2018 Status: COMPLETED Source: DRAIN 6:09 PM [facility] REPOSITORY HNO ID: [id number] Author: Tanner YoungRn) BK Perez Service: Emergency Medicine Author Type: Registered Nurse Type: ED Notes Filed: 07/22/2018 6:15 PM Note Text: Received call from sae Bucksection housekeeper at [facility]. Pt has been assigned to room # 215, med/surg. Number for report is . Primary nurse notified. ED NOTE Observed: 07/22/2018 Status: COMPLETED Source: DRAIN 6:01 PM [facility] REPOSITORY HNO ID: [id number] Author: Tanner YoungRn) BK Perez Service: Emergency Medicine Author Type: Registered Nurse Type: ED Notes Filed: 07/22/2018 6:02 PM Note Text: Spoke with Heber Subsurface Augmentee Operator at [place]. Notified that pt will be admitted by Dr. Pederson. He states he will assign bed after receiving a call from admitting physician. ED NOTE Observed: 07/22/2018 Status: COMPLETED Source: DRAIN 5:58 PM [facility] REPOSITORY HNO ID: [id number] Author: Tanner YoungRn) BK Perez Service: Emergency Medicine Author Type: Registered Nurse Type: ED Notes Filed: 07/22/2018 5:59 PM Note Text: Pt is willing to be admitted to [place]. ED NOTE Observed: 07/22/2018 Status: COMPLETED Source: DRAIN 5:54 PM [facility] REPOSITORY HNO ID: [id number] Author: Tanner Perez RN Service: Emergency Medicine Author Type: Registered Nurse Type: ED Notes Filed: 07/22/2018 5:58 PM Note Text: Dr. Pederson ([facility]) called back to unit, covering for Dr. Zhang. Dr. Pederson recommends admission to [facility]. She will arrange direct admit. Dr. Fernandez will speak with patient regarding admission ED NOTE Observed: 07/22/2018 Status: COMPLETED Source: DRAIN 5:43 PM [facility] REPOSITORY HNO ID: [id number] Author: Tanner Perez RN Service: Emergency Medicine Author Type: Registered Nurse Type: ED Notes Filed: 07/22/2018 5:44 PM Note Text: Contacted answering service for GEM Cordero in [place]. Sleeve Setter Safety Stitch given requested information. States we should receive a call- back shortly ED NOTE Observed: 07/22/2018 Status: COMPLETED Source: [place]RA[place] 4:45 PM [facility] [place] REPOSITORY HNO ID: [id number] Author: Tanner (Rn) BK Perez Service: Emergency Medicine Author Type: Registered Nurse Type: ED Notes Filed: 07/22/2018 4:46 PM Note Text: Heber section housekeeper at [facility] called back and stated he could find no records of this patient at [place]. Primary nurse and physician notified. BASIC PANEL Collected: 07/22/2018 Status: F Source: [facility] 4:34 PM HEALTH SYSTEM REPOSITORY TYPE CODE TESTS RESULT OUT OF REFERENCE UNITS RANGE LAB SCADA ENGINEER(LOINC) 136-145 mEq/L Low Sodium Blood 135 LAB [...] 21 Ratio Performed By: #### LP8 #### [place] [address] MDRD EGFR Collected: 07/22/2018 Status: F Source: [facility] 4:34 PM HEALTH SYSTEM REPOSITORY TYPE CODE TESTS RESULT OUT OF RANGE REFERENCE UNITS LAB LGFRF(LOINC >60mL/min/1.73m ) 2 eGFR >60 Result Comment: If the patient is , multiply the result by 1.210. Performed By: #### LGFR #### [address] [address] HEMOGRAM/MANUAL DIFF Collected: 07/22/2018 Status: F Source: [place] 4:34 PM [facility] REPOSITORY TYPE CODE TESTS RESULT [...] 0.89 LAB LMONN(LOIN 0.20-1.00 thou/cmm C) Abs. Cocke 0.25 LAB LEOSN(LOIN 0.00-0.41 thou/cmm C) Abs. Eosin 0.00 LAB LBASN(LOIN 0.00-0.08 thou/cmm C) Abs. Baso 0.03 LAB LPLES(LOIN C) Platelet Estimate Normal LAB LANIS(LOIN C) Anisocytosis Slight LAB LPOLY(LOIN C) Polychromasia Few LAB LSTOM(LOIN C) Stomatocytosis Slight Performed By: #### LMCBD #### [facility] [address] [place], [place] [address] ED NOTE Observed: 07/22/2018 Status: COMPLETED Source: [place] 4:30 PM [facility] REPOSITORY HNO ID: [id number] Author: Leonela (Rn) Юлия RN Service: Emergency Medicine Author Type: Registered Nurse Type: ED Notes Filed: 07/22/2018 4:31 PM Note Text: [facility] records and lab results from patients last visit. Record released signed by patient and faxed to [place]. URINE HCG, QUAL. Collected: 07/22/2018 Status: F Source: [facility] 4:30 PM HEALTH SYSTEM REPOSITORY TYPE CODE TESTS RESULT OUT OF REFERENCE UNITS RANGE LAB LUHCG(LOINC Negative ) HCG, Negative Qual. Urine Performed By: #### LHCG2 #### [facility] [address] [place] [id number] URINALYSIS ROUTINE Collected: 07/22/2018 Status: F Source: [facility] 4:30 PM HEALTH SYSTEM REPOSITORY TYPE [...] NEGATIVE LAB LSPG(LOINC 1.005-1.030 ) Specific 1.015 [place], Ur LAB LPHUR(LOIN 5.0-8.0 C) High pH,Urine [...] Threads MODERATE Performed By: #### AMAN #### [facility] [address] [place] [id number] ED PROV NOTE Observed: 07/22/2018 Status: COMPLETED Source: [place] 4:21 PM [facility] REPOSITORY HNO ID: [id number] Author: Sandeep Fernandez MD Service: Emergency Medicine Author Type: Physician Type: ED Provider Notes Filed: 07/22/2018 5:59 PM Note Text: ED Provider Note Patient Name: Renuka Sagastume SERVICE DATE: 07/22/18 History Patient presents with: Vaginal Bleeding 28-year-old female, complains of vaginal bleeding ?4 weeks. Seen in the ED just several days ago at [place]. Found to have low hemoglobin, started on iron. Also started on control pills for which she is taking double dose per her SKEIN STRAIGHTENER recommendations. She has not been able to see her SKEIN STRAIGHTENER since this bleeding began. Complains of mild [...] medication, 2 pills a day per her SKEIN STRAIGHTENER. Pelvic exam done with product management specialist showed continued mild to moderate vaginal bleeding [...] Dr Pederson: Patient will be transferred to [place] for admission per the discussion. Repeat hemoglobins, possible ultrasounding, and discussion of management of the [place] nausea. Patient in concurrence with plan and has no questions or concerns. The patient was TRANSFERRED to: [place] Condition at time of disposition: stable SIGNATURE: MD Sandeep Light MD 07/22/18 1759 ED NOTE Observed: 07/22/2018 Status: COMPLETED Source: [place] 4:04 PM [facility] [place] REPOSITORY HNO ID: [id number] Author: Leonela (Rn) BK Redman Service: Emergency [...] EMERGENCY DEPARTMENT Observed: 07/20/2018 Status: F Source: [place] SUMMARY 2:22 PM [facility] REPOSITORY [facility] Medical Records Department [address] [place] [address] Emergency Department Summary 07/20/18 1306 MR#: [id number] Acct: [id number] Name: RENUKA LAKE Rep #: [id number] : 1990 28 From: Kory Ho MD PCP: Care Physician, No Primary [...] has not been able to see her MEDICAL SALES ASSOCIATE yet and was advised to come to [...] with emergently. is negative. Discussed with her dye jig operator Dr. Zhang, he agrees with discharge and [...] your Primary Care Provider. Call [facility] ([phone]) or report to the closest Emergency Room. Call 911 if necessary. 07/20/18 1422 <Electronically signed by Kory Ho MD> Date Kory Ho MD Cosigner Signature (If Indicated): Date CC: No Primary Care Physician CBC W/DIFF, AUTOMATED Collected: 07/20/2018 Status: F Source: GENET 1:20 PM [facility] REPOSITORY TYPE CODE TESTS RESULT OUT OF [...] Lymph 2.45 Performed By: #### L100.0100 #### [facility] [address] [place], [place], [address] URINALYSIS, COMPLETE Collected: 07/20/2018 Status: F Source: [place] 1:10 PM [facility] REPOSITORY Order Comment: COLOR OF URINE MAY [...] ESTERASE Negative Performed By: #### L400.0001 #### [facility] [address] [place], [address] ,URINE Collected: 07/20/2018 Status: F Source: [place] 1:10 PM [facility] REPOSITORY TYPE CODE TESTS RESULT OUT OF REFERENCE UNITS RANGE LAB L400.8000 Negative Normal HCGUQUAL Negative Result Comment: Very dilute urine specimens, as indicated by a low specific gravity, may not contain uniforms sales representative levels of hCG. If is still suspected, a first morning urine specimen should be collected 48 hours later and tested. Performed By: #### L400.7600 #### [facility] [address] [facility] [place], [address] PAP I-G W/RFX HRHPV Collected: 04/08/2018 Status: F Source: [place] 9:30 AM [facility] REPOSITORY Order Comment: CYTOLOGY INFORMATION: - CLINICAL INFORMATION: - DATE LMP/MENOPAUSE: 02/07/18 LMP - COLLECTION VIAL: Thin Prep Vial - MEDICAL SALES ASSOCIATE SOURCE: CERVICAL/ENDOCERVICAL - COLLECTION TECHNIQUE: BRUSH/SPATULA Specimen Comment: [id number] Specimen Comment: No. of containers..01 ThinPrep Vial TYPE CODE TESTS RESULT OUT OF RANGE REFERENCE UNITS LAB L7400.0800 . Normal DIAGN Comment Result Comment: NEGATIVE FOR INTRAEPITHELIAL LESION AND MALIGNANCY. LAB L7400.0900 . Normal ADEQ Comment Result Comment: Satisfactory for evaluation. Endocervical and/or squamous metaplastic cells (endocervical component) are present. LAB L7400.1400 . Normal PERFORM Comment Result Comment: [place], [employer] (AS[facility]) LAB L7400.2575 . Normal TEST METHOD [...] HPV testing was performed. Performed at: - [facility] [id number] Glass Setter: Elana Tate MD, Phone: [phone] Performed By: #### L7400.0350 #### [facility] (refer to report for specific site) refer to report for address and phone number HCG TITER QUANT., Collected: 04/01/2018 Status: F Source: [place] SERUM 2:03 PM [facility] REPOSITORY TYPE CODE TESTS RESULT OUT OF RANGE REFERENCE UNITS LAB L700.8000 <9 non-preg mIU/mL Normal HCG < 1 QUANT. Performed By: #### L700.8000 #### [facility] [address] [place], [place], [id number] HEMOGLOBIN A1C Collected: 04/01/2018 Status: F Source: [place] 2:03 PM [facility] REPOSITORY TYPE CODE TESTS RESULT OUT OF RANGE REFERENCE UNITS LAB L501.9985 4.2-6.3 % Normal HGB A1C 5.2 Performed By: #### L501.9985 #### [facility] [address] [place], [place], [address] FREE T3 Collected: 04/01/2018 Status: F Source: [place] 2:03 PM [facility] REPOSITORY TYPE CODE TESTS RESULT OUT OF RANGE REFERENCE UNITS LAB L501.20774 2.18-3.98 pg/mL Normal FREE T3 2.7 Performed By: #### L501.95225, L501.9520, L506.0400, L3100.5125, L3100.5170, L3100.5420 #### [facility] [address] [place], [place], [address] THYROID STIM HORMONE Collected: 04/01/2018 Status: F Source: GENET (TSH) 2:03 PM [facility] REPOSITORY TYPE CODE TESTS RESULT OUT OF RANGE REFERENCE UNITS LAB L501.9520 0.358-3.74 uIU/mL Normal TSH 1.06 Performed By: #### L501.90056, L501.9520, L506.0400, L3100.5125, L3100.5170, L3100.5420 #### [facility] [address] [place], [place], [address] T4 FREE DIRECT Collected: 04/01/2018 Status: F Source: GENET 2:03 PM [facility] REPOSITORY TYPE CODE TESTS RESULT OUT OF RANGE REFERENCE UNITS LAB L506.0400 0.76-1.46 ng/dL Normal T4 FREE 0.92 DIRECT Performed By: #### L501.44170, L501.9520, L506.0400, L3100.5125, L3100.5170, L3100.5420 #### [facility] [address] [place], [place], [address] FOLLICLE STIMULATING Collected: 04/01/2018 Status: F Source: [place] HORMONE 2:03 PM [facility] REPOSITORY TYPE CODE TESTS RESULT OUT OF [...] RANGES JANUARY 11, 2012 Performed By: #### L501.38200, L501.9520, L506.0400, L3100.5125, L3100.5170, L3100.5420 #### [facility] [address] [place], [place], [address] LUTEINIZING HORMONE Collected: 04/01/2018 Status: F Source: [place] 2:03 PM [facility] REPOSITORY TYPE CODE TESTS RESULT OUT OF [...] RANGES JANUARY 11, 2012 Performed By: #### L501.08128, L501.9520, L506.0400, L3100.5125, L3100.5170, L3100.5420 #### [facility] [address] [place], [place], [address] PROLACTIN Collected: 04/01/2018 Status: F Source: GENET 2:03 PM [facility] REPOSITORY TYPE CODE TESTS RESULT OUT OF RANGE REFERENCE UNITS LAB L3100.5420 ng/mL Normal PROLACTIN 5.2 Result Comment: NORMAL REFERENCE RANGES FEMALE NON- 2.2 - 30.3 ng/mL 8.1 - 347.6 ng/mL POST-MENOPAUSAL 0.7 - 31.5 ng/mL MALE 2.5 - 17.4 ng/mL NEW TEST METHOD AND REFERENCE RANGES JANUARY 11, 2012 Performed By: #### L501.07413, L501.9520, L506.0400, L3100.5125, L3100.5170, L3100.5420 #### [facility] [address] [place], [place], [address] HCG TITER QUANT., Collected: 03/24/2018 Status: F Source: [place] SERUM 12:59 PM [facility] REPOSITORY TYPE CODE TESTS RESULT OUT OF RANGE REFERENCE UNITS LAB L700.8000 <9 non-preg mIU/mL Normal HCG < 1 QUANT. Performed By: #### L700.8000 #### [facility] [address] [place], [place], [address] ALLERGIES ALLERGIES DATE TYPE / CODE NAME / CODE REACTION SEVERITY SOURCE 07/22/2018 Drug No Known Unknown [facility] Allergy/416 Allergies/P03699 Hospital 285367(SNOM 0388(RXNORM) Repository ED CT) Drug NO KNOWN [facility] Class/21615 ALLERGIES Other [place] 1003(SNOMED Repository CT) ENCOUNTERS ENCOUNTERS ADMIT/DISCHARGE ACCOUNT ADMITTING ENCOUNTER LOCATION SOURCE NUMBER CLASS 07/22/2018/07/23/20 [id number] [place], Ambulatory [address] ing:TI8Gigf: Repository SY053Jsf: 1 07/22/2018/07/22/20 [id number] Emergency [address] Other [place] Repository 07/20/2018/07/20/20 [id number] Emergency [address] ing:ED Repository 04/08/2018 [id number] Ambulatory [facility] ing:LABSPEC Repository 04/01/2018 [id number] [facility] ing:WOBLAB Repository 03/24/2018 [id number] [facility] ing:WOBLAB Repository PAYERS PAYERS ENCOUNTER GUARANTOR PAYER SUBSCRIBER SOURCE 07/22/2018 RENUKA [place] Primary RENUKA SANTANA Insurance[facility]OURCEP [facility] [place]: [id number] [id number] Repository [address]Aex: [phone]) Date:2018-07-22P O [phone] () [address]ATTN: [place] [address]US: 07/22/2018 Secondary NOT GIVENUNK [employer] Insurance:SELF PAY [facility] Number: Effective Repository Date:2018-07-22 07/20/2018 RENUKA [place] Primary RENUKA SANTANA Insurance:CAREURCEP [facility] Number: [id number] [id number] Repository [address]Wet: [phone]) Date:2018-07-20P O [phone] () [address]ATTN: [place] [address]PC: 07/20/2018 Secondary NOT GIVENUNK [employer] Insurance:SELF PAY [facility] Number: Effective Repository Date:2018-07-20 04/08/2018 Renuka Woodward Primary Renuka Woodward [employer]et [id number] Insurance:CARESOURCEP OsbornDOB: [facility] Number: [id number] [id number] Repository [address]Jlm: [phone] Date:2018-04-08P O [phone] (HP) [address]ATTN: CLAIMS [facility] [place] [address]DW: 04/08/2018 Secondary NOT GIVENUNK [place] Insurance:SELF PAY [facility] Number: Effective Repository Date:2018-04-08 04/01/2018 Renuka Woodward Primary Renuka Woodward [place] [id number] Insurance:CARESOURCEP OsbornDOB: [facility] Number: [id number], [place] [id number] Repository [address]Ujo: [phone] Date:2018-04-01P O [phone] (HP) [address]ATTN: [place] [address]KV: 04/01/2018 Secondary NOT GIVENUNK [place] Insurance:SELF PAY [facility] Number: Effective Repository Date:2018-04-01 03/24/2018 Renuka Woodward Primary Renuka Woodward [place] [id number] Insurance:CARESOURCEP OsbornDOB: [facility] Number: [id number] [id number] Repository [id number]: ([phone]) Date:2018-03-24P O [phone] (HP) [address]ATTN: [place] [id number]: 03/24/2018 Secondary NOT GIVENUNK [place] Insurance:SELF PAY [facility] Number: Effective Repository Date:2018-03-24
== END 2018-07-23 13:55 | disposition home or self-care (01) ==
PROVIDERS: Admitting Provider Obstetrics & Gynecology; Visit Provider Obstetrics & Gynecology
DX: N92.1 Excessive and frequent menstruation with irregular cycle (principal); D62 Acute posthemorrhagic anemia
CPT/HCPCS: 36415; 76830; 80048; 85027; 86850; 86900; 93976; 96374; 99218; A4216; G0378; G0379; J2405